=== PATIENT | female | born 2000 | race Caucasian/White ===

== ENCOUNTER 2021-10-11 23:48 | Inpatient (IN) ==
[2021-10-12] MEDS ORDERED: LACTATED RINGER'S 1,000 ML IV PRN (00:13)
[2021-10-12] MEDS ORDERED: OXYTOCIN 30 UNITS/500 ML BAG IV PRN ×2 (00:13→01:11)
--- NOTE | 2021-10-12 00:15 | History & Physical Report ---
Date of Service October 12, 2021 Assessment & Plan (1) Encounter for supervision of normal in multigravida, antepartum: Plan: 20yo at 39.0 weeks GA. Labor 1. Fetus: Cat 1 2. Labor: Active. 3. GBS: Negative (2) Normal labor and delivery: Admission and Anticipated Discharge Date Admission Date: October 11, 2021 History of Present Illness Primary Care Provider: Zita Zamudio, DO 20yo at 39.0 weeks GA. Present in advanced active labor. complicated by A1gDM. OB Labs: Blood Type O Positive 03/12/21 Antibody Screen NEGATIVE 03/12/21 Hemoglobin 11.8 g/dL (12.0-16.0) L 07/31/21 Hematocrit 35.0 % (37-47) L 07/31/21 Mean Corpuscular Volume 81.4 fL (80-100) 03/12/21 Platelet Count 223 K/uL (130-400) 10/03/21 Rubella IgG Antibody Immune (Immune) 03/12/21 Rapid Plasma Reagin Nonreactive (Nonreactive) 03/12/21 Hepatitis B Surface Antigen Neg (Neg) 10/03/21 HIV (1&2) Ab and P24 Ag, 4th Gener Neg (Neg) 03/12/21 Glucose 1 Hour 50 gm Load 136 mg/dl (70-130) H 07/31/21 Maternal Serum Alpha Fetoprotein 51.5 ng/mL 05/15/21 OB Optional Labs: Chlamydia trachomatis RNA NOT DETECTED (NOT DETECTED) 03/12/21 Neisseria gonorrhoeae RNA NOT DETECTED (NOT DETECTED) 03/12/21 Alpha Fetoprotein Triple Screen SEE NOTE 05/15/21 Allergies Allergy/AdvReac Type Severity Reaction Status Date / Time benzocaine Allergy Verified 10/11/21 10:09 Home Medications Medication Instructions Recorded Confirmed Type prenat.vits,kimo,kpx-jzyi-siafs 1 tab PO DAILY 03/02/21 10/12/21 History acetone (urine) test (Ketone Urine #50 ea 09/03/21 10/11/21 Rx Test) blood sugar diagnostic (OneTouch #150 ea 09/03/21 10/11/21 Rx Verio test strips) blood-glucose meter (OneTouch #1 ea 09/03/21 10/11/21 Rx Verio Flex meter) lancets 33 gauge (OneTouch Delica #150 ea 09/03/21 10/11/21 Rx Plus Lancet) ondansetron HCl 4 mg tablet 4 mg PO Q6H #20 tab 10/09/21 10/12/21 Rx Patient History Medical History (Updated 10/12/21 @ 06:52 by Carroll Parada MD) Asthma Gestational diabetes mellitus (GDM) affecting , antepartum Surgical History H/O wisdom tooth extraction History of tonsillectomy and adenoidectomy Family History Mother Diabetes Hypertension Social History (Updated 03/02/21 @ 14:29 by Chantel Nicholas) Smoking Status: Current every day smoker Tobacco Type: Cigarettes packs per day: 0.75; Cigarettes Per Day: 20; Hx Alcohol Use: No Hx Substance Use: No Preferred Language: [place] Electric Motor Rebuilder Required: No Beliefs That Will Affect Care: None marital status: Single marital status details: Saba (20) [phone] Current Living Situation: Alone Current Living Situation Comment: lives with 2 children current occupational status: employed current occupation: in home health care How many Children do You have: 2 Other Information That Helps Us Care for You: No Feels Safe at Home: Yes Safety Concerns: Feels Safe At This Time Do you think of yourself as: straight/heterosexual Gender Identity: Female Assistive Devices: Glasses Physical Exam Genitourinary: Manual OB Exam: + cervical dilation 6 cm, + cervical effacement 90% and + station 0 OB Exam Monitor Tracing: + external FHT monitor used, + external uterine monitor used and + category I; no category II, no normal FHT variability, no early decelerations present, no late decelerations present and no variable decelerations Results & Data ([facility]) Vital Signs (Past 12 Hours) Vital Signs Temp Pulse Resp BP 10/12/21 00:00 36.8 C 52 L 18 142/83 H Coding Level of Care Code None Diagnoses Encounter for supervision of normal in multigravida, antepartum Z34.80 Normal labor and delivery O80
[2021-10-12] MEDS ORDERED: fentaNYL 2MCG/ML ROPIVACAINE 1.25MG/ML 100 ML BAG EPI ONE (00:35)
[2021-10-12] MEDS ORDERED: fentaNYL citrate 100 MCG/2 ML VIAL ONE (00:35)
[2021-10-12] MEDS ORDERED: ePHEDrine sulfate 50 MG/ML AMP ONE (00:35)
[2021-10-12] MEDS ORDERED: SODIUM CHLORIDE 0.9% INJ 10 ML VIAL ONE (00:35)
[2021-10-12] MEDS ORDERED: BUPIVACAINE 0.25% 30 ML VIAL ONE (00:35)
[2021-10-12 00:47] LABS: Hematocrit (blood only) 33.7 % (37-47); Hemoglobin 11.1 g/dL (12.0-16.0); Mean Corpuscular Hemoglobin 26.6 pg (25-34); Mean Corpuscular Hgb Conc 32.9 g/dL (32-36); Mean Corpuscular Volume 80.6 fL (80-100); Mean Platelet Volume 11.7 fL (7.4-10.4); Platelet Count 245 K/uL (130-400); RDW Standard Deviation 43.2 fL (36.4-46.3); Red Blood Count 4.18 M/uL (4.2-5.4); White Blood Count 13.01 K/uL (4.8-10.8)
--- NOTE | 2021-10-12 01:07 | Anesthesiology Consultation ---
Date of Service October 12, 2021 Assessment & Plan (1) Encounter for pre-operative examination: Chart Review Chart Review: Acceptable Risk for Labor Epidural History Height/Weight Height: 5 ft 2 in Weight: 92.986 kg Allergies Allergy/AdvReac Type Severity Reaction Status Date / Time benzocaine Allergy Verified 10/11/21 10:09 Medications Home Medications Medication Instructions Recorded Confirmed Last Taken prenat.vits,kimo,nzl-issg-intql 1 tab PO DAILY 03/02/21 10/12/21 10/11/21 acetone (urine) test (Ketone Urine #50 ea 09/03/21 10/11/21 Unknown Test) blood sugar diagnostic (OneTouch #150 ea 09/03/21 10/11/21 Unknown Verio test strips) blood-glucose meter (OneTouch #1 ea 09/03/21 10/11/21 Unknown Verio Flex meter) lancets 33 gauge (OneTouch Delica #150 ea 09/03/21 10/11/21 Unknown Plus Lancet) ondansetron HCl 4 mg tablet 4 mg PO Q6H #20 tab 10/09/21 10/12/21 Unknown Active Medications Generic Name Dose Route Start Last Admin Trade Name Freq PRN Reason Stop Dose Admin Lactated Ringer's 1,000 mls @ 125 mls/hr 10/12/21 00:13 10/12/21 00:25 Lr IV 10/14/21 00:12 999 mls/hr .Q8H PRN Administration L&D Protocol Protocol Past Medical History Medical History (Updated 10/12/21 @ 01:07 by Osmany Aguilera MD) Asthma Gestational diabetes mellitus (GDM) affecting , antepartum Past Family History Family History Mother Diabetes Hypertension Past Surgical History Surgical History H/O wisdom tooth extraction History of tonsillectomy and adenoidectomy Social History Smoking Status: Current every day smoker tobacco type: cigarettes Smoking cigarettes per day: 20 Hx Alcohol Use: No Hx Substance Use: No Physical Exam Vital Signs Last Vital Signs Temp 36.8 C 10/12/21 00:06 Pulse 108 H 10/12/21 01:00 Resp 18 10/12/21 00:06 BP 142/83 H 10/12/21 00:06 Pulse Ox 89 L 10/12/21 01:00 Testing Laboratory Results 10/12/21 00:37 10/12/21 00:33 POC Glucose 106 H
[2021-10-12] MEDS ORDERED: HYDROCORTISONE ACETATE 25 MG SUPP PR PRN (01:11)
[2021-10-12] MEDS ORDERED: ACETAMINOPHEN 325 MG TAB PO PRN (01:11)
[2021-10-12] MEDS ORDERED: DIPHTHERIA/TETANUS/PERTUSSIS 0.5 ML SYR/VIAL IM ONE (01:11)
[2021-10-12] MEDS ORDERED: BENZOCAINE 20% AER SPR 82.5 GM CAN EXT PRN (01:11)
[2021-10-12] MEDS ORDERED: SUPERCREAM 0.870% 15 GM JAR EXT PRN (01:11)
[2021-10-12] MEDS: IBUPROFEN 600 MG TAB PO PRN ×4 (02:02→23:12)
--- NOTE | 2021-10-12 08:31 | Delivery Summary ---
DATE OF SERVICE: 10/12/2021 PROCEDURE: Normal spontaneous vaginal delivery. SURGEON: Carroll Parada MD. PREOPERATIVE DIAGNOSES: 1. Single intrauterine at 39 weeks 0 days gestational age. 2. Prior complicated by cholestasis of . 3. Diet-controlled gestational diabetes. POSTOPERATIVE DIAGNOSES: 1. Single intrauterine at 39 weeks 0 days gestational age. 2. Prior complicated by cholestasis of . 3. Diet-controlled gestational diabetes. 4. Status post procedure. ESTIMATED BLOOD LOSS: 200 mL. DRAINS: None. FLUIDS: Continuous lactated Ringer. URINE OUTPUT: None. COMPLICATIONS: None. FINDINGS: Viable with weight pending and Apgars of 8 and 9 at one and five minutes [facility]. INDICATIONS: Christal is a 20-year-old -0-0-2, at 39 weeks 0 day gestational age, presented in advanced active labor. Upon initial evaluation, the patient was found to be 6 cm dilated, 100% effac ed, 0 station. The patient progressed rapidly to complete-complete, +2 station with a strong urge to push. The patient underwent artificial rupture of membranes just prior to starting to push and push ed over 1 contraction to achieve delivery. DESCRIPTION OF PROCEDURE: The patient progressed to 10 cm dilated, 100% effaced, positive 2 station, pushed over intact perineum without anesthesia and delivered a viable with weight and Apgars pending. Head of the delivered in HUMBERTO position, restituted to right transverse. No nuchal cord was noted. Body and shoulders quickly followed. was noted to be vigorous soon after de livery and 1 minute delayed cord clamping was initiated. Cord was then double clamped and cut. Neon ate remained on maternal abdomen. Cord blood was obtained. Attention was then turned to delivery of the placenta, which was delivered intact, 3-vessel cord, gentle cord traction. Inspection of the pe rineum, vagina, cervix noted no lacerations. Sponge and instrument counts were correct at the comple tion of the case. Both mother and were stable in the immediate post-delivery period. Job ID: [id number]
[2021-10-12] MEDS: DOCUSATE SODIUM 100 MG CAP PO SCH ×2 (09:11→20:06)
[2021-10-12] MEDS: PRENATAL VITAMIN 1 TAB PO SCH (09:11)
--- NOTE | 2021-10-13 06:17 | Obstetrical Progress Note ---
Date of Service <Jluis Lama DO - Last Filed: 10/13/21 08:28> October 13, 2021 Assessment & Plan <Jluis Lama DO - Last Filed: 10/13/21 08:28> (1) Encounter for care and examination after delivery: 20 yo post day 1 from vaginal delivery, doing well. -Continue routine post care. -Blood pressures elevated to 140-150's systolic, 70's-90's diastolic. Started on Nifedipine XR 30mg daily given HR in 40's and 50's. -Blood type O+, GBS Negative, Rubella Immune. -Encourage ambulation, monitor and control pain with Motrin, tylenol PRN, resume regular diet, monitor lochia. -Hx of asthma, patient said she will take albuterol inhaler at home for cough. -Discussed discharge with patient. Discharge today pending BP. -Patient will follow up with OB clinic in 1 week for blood pressure check and Dr. Parada in 6 weeks. <Natalya Rock MD, FACOG - Last Filed: 10/13/21 08:32> (1) Encounter for care and examination after delivery: Subjective <Jluis Lama DO - Last Filed: 10/13/21 08:28> Ambulation: ambulating normally Voiding: no voiding problems Passing Gas:: Yes Diet Tolerance:: regular diet Lochia:: Small Feeding Type:: bottle feeding Current Pain Level(1-10): 0 Review of Systems Denies fever, chills, sweats Denies shortness of breath, difficulty breathing, chest pain, palpitations, chest pressure. +Cough infrequently. Denies breast pain. Denies dysuria. Denies headache or changes in vision Physical Exam <Jluis Lama DO - Last Filed: 10/13/21 08:28> General: Alert, oriented. No acute distress. Cardiac: Regular rate and rhythm, no murmurs/rubs/gallops. Respiratory: Wheezes in LLL field, clear elsewhere. No increased work of breathing. Symmetrical chest rise. No respiratory distress. Abdomen: Soft, nontender, nondistended. Bowel sounds present. Uterus: Uterine fundus firm, palpable 1 cm below umbilicus. Lower Extremities: No lower extremity edema or swelling. No deep calf pain. Abigail's negative bilaterally Results & Data ([facility]) <Jluis Lama DO - Last Filed: 10/13/21 08:28> Vital Signs (Past 12 Hours) Vital Signs Temp Pulse Resp BP Pulse Ox 10/12/21 23:10 36.7 C 52 L 16 135/69 97 10/12/21 20:00 36.7 C 46 L 16 148/90 H 99 <Natalya Rock MD, FACOG - Last Filed: 10/13/21 08:32> Co-Signing Physician Notes Resident Physician Supervision Note: I was present with Dr. Lama during the history and exam. I discussed the case with the resident and agree with the findings and plan as documented in the note. Any exceptions or clarifications are listed here: pt doing well and wants to go home today. i saw her bps overnight and labs today with cbc/cmp are normal. based on am bps, not yet documented in [facility], i am starting nifedipine xl and see how bp responds. if appropriate will dc home later today with plan for one wk bp check. rehabilitation assistant md to be notified of bps prior to dc as they will need to finalize meds. pt aware of dc instructions and plan. pranav, yessneia, ri. Documented By: Natalya Rock MD, FACOG Resident Activity Tracking <Jluis Lama DO - Last Filed: 10/13/21 08:28> Resident Involvement: Resident Care Provided Care Provided: OB Delivery
[2021-10-13 06:22] LABS: Hemoglobin 9.8 g/dL (12.0-16.0); Mean Corpuscular Hgb Conc 31.6 g/dL (32-36); Mean Corpuscular Volume 82.2 fL (80-100); Mean Platelet Volume 11.8 fL (7.4-10.4); Platelet Count 222 K/uL (130-400); RDW Coefficient of Variation 15.1 % (11.5-14.5); RDW Standard Deviation 44.8 fL (36.4-46.3); Red Blood Count 3.77 M/uL (4.2-5.4); White Blood Count 11.23 K/uL (4.8-10.8)
[2021-10-13 06:46] LABS: Albumin Level 2.7 gm/dl (3.4-5.0); Bilirubin,Total 0.3 mg/dl (0.2-1.0); Creatinine Clr Calc Pharmacy 144.1 ml/min; Est GFR (African American) 146.1 ml/min; Globulin 2.6 gm/dl (2.5-4.0); Total Protein 5.3 gm/dl (6.0-8.3)
[2021-10-13] MEDS ORDERED: NIFEdipine EXTENDED REL 30 MG TABCR PO ONE (08:30)
[2021-10-13] MEDS: PRENATAL VITAMIN 1 TAB PO SCH (09:01)
[2021-10-13] MEDS: IBUPROFEN 600 MG TAB PO PRN (09:01)
[2021-10-13] MEDS: DOCUSATE SODIUM 100 MG CAP PO SCH (09:01)
--- NOTE | 2021-10-13 13:50 | Communication Note ---
Date of Service: October 13, 2021 BP reviewed, last several values are all below the severe range. Patient has been eager to go home today. Will allow patient to d/c home with ER Nifedipine, gHTN precautions (call with [facility], vision changes, RUQ pain, increased edema, or feeling unwell), and a 1-week blood pressure check in the office. Her low pulse has made beta blockers less appealing as a treatment choice. Nifedipine 30ER daily Rx sent to her pharmacy.
[2021-10-13] MEDS ORDERED: bisacodyL 5 MG TABEC PO SCH (20:00)
[2021-10-14] MEDS ORDERED: bisacodyL 10 MG SUPP PR PRN
== END 2021-10-13 14:45 | disposition home or self-care (01) | DRG 807 ==
LOC: 4S1 23:48 → 4N 10-12 03:52
DX: O99.52 Diseases of the respiratory system complicating childbirth; Z88.4 Allergy status to anesthetic agent; R03.0 Elevated blood-pressure reading, without diagnosis of hypertension; O09.893 Supervision of other high risk pregnancies, third trimester; Z83.3 Family history of diabetes mellitus; Z3A.39 39 weeks gestation of pregnancy; Z79.899 Other long term (current) drug therapy; Z37.0 Single live birth; F17.210 Nicotine dependence, cigarettes, uncomplicated; O24.420 Gestational diabetes mellitus in childbirth, diet controlled; O99.334 Smoking (tobacco) complicating childbirth; J45.909 Unspecified asthma, uncomplicated; O99.893 Other specified diseases and conditions complicating puerperium

== ENCOUNTER 2021-10-31 15:32 | Inpatient (IN) ==
[2021-10-31 16:45] LABS: Basophils # (auto) 0.03 K/uL (0-0.2); Basophils % (auto) 0.3 %; Eosinophils # (auto) 0.07 K/uL (0-0.5); Eosinophils % (auto) 0.7 %; Hematocrit (blood only) 41.3 % (37-47); Hemoglobin 13.6 g/dL (12.0-16.0); Immature Granulocytes # (auto) 0.04 K/uL (0.00-0.02); Immature Granulocytes % (auto) 0.4 %; Lymphocytes # (auto) 2.71 K/uL (1.2-3.4); Lymphocytes % (auto) 28.8 %; Mean Corpuscular Hemoglobin 26.7 pg (25-34); Mean Corpuscular Hgb Conc 32.9 g/dL (32-36); Mean Corpuscular Volume 81.1 fL (80-100); Monocytes # (auto) 0.47 K/uL (0.11-0.59); Neutrophils % (auto) 64.8 %; Platelet Count 405 K/uL (130-400); RDW Coefficient of Variation 17.3 % (11.5-14.5); Red Blood Count 5.09 M/uL (4.2-5.4); White Blood Count 9.42 K/uL (4.8-10.8)
[2021-10-31 16:48] LABS: Appearance Urine Clear (Clear); Bacteria Urine Automated Negative (Negative); Blood Urine 3+ (Negative); Cast Urine Automated 0 /lpf (0-5); Color Urine Dark Yellow; Epithelial Cell Urine Auto >30 /lpf (0-5); Glucose Urine UA Negative (Negative); Ketones Urine Trace (Negative); Leukocyte Esterase Urine 1+ (Negative); Nitrite Urine Positive (Negative); Urobilinogen Urine Negative (Negative); pH Urine 7.5 (4.5-7.5)
[2021-10-31 16:55] LABS: Bilirubin Urine 2+ (Negative); Protein Urine Trace (Negative)
[2021-10-31 17:19] LABS: Albumin Globulin Ratio 1.2 (0.9-2); Albumin Level 4.1 gm/dl (3.4-5.0); BUN Creatinine Ratio 16.9 (10-20); Bilirubin,Total 3.7 mg/dl (0.2-1.0); Calcium 9.9 mg/dl (8.5-10.1); Creatinine Clr Calc Pharmacy 120.8 ml/min; Est GFR (African American) 140.1 ml/min; Est GFR (Non-African American) 120.9 ml/min; Globulin 3.4 gm/dl (2.5-4.0); Total Protein 7.5 gm/dl (6.0-8.3)
[2021-10-31] MEDS ORDERED: SODIUM CHLORIDE 0.9% 1000ML 1,000 ML IV ONE (18:20)
[2021-10-31] MEDS ORDERED: ONDANSETRON INJ 2 MG/ML 2 ML VIAL IV STA (18:20)
[2021-10-31] MEDS ORDERED: KETOROLAC TROMETHAMINE 15 MG/ML VIAL IV STA (18:20)
[2021-10-31 19:02] LABS: Potassium 3.7 mmol/L (3.5-5.1)
[2021-10-31 19:09] LABS: Pregnancy Test, Serum Negative (Negative)
--- NOTE | 2021-10-31 19:39 | Ultrasound Report ---
US gallbladder CLINICAL HISTORY: ruq pain TECHNIQUE: Multiple real-time sonographic images of the right upper quadrant were obtained. Comparison: None available at the time of this dictation. FINDINGS: The liver is diffusely homogenous with normal contour and echogenicity. No focal mass lesions are se en. No intrahepatic ductal dilatation is seen. Low level internal echoes are identified layering dependently within the gallbladder, which is consistent with gallbladder sludge. The gallbladder wall is not thickened. There is no pericholecystic fluid present. A sonographic Vergara's sign was not el icited by the remanufacturing technician. The common duct measures 1.3 cm in diameter at the level of the hepatic artery. Immobile stones are seen in the common bile duct at the level of the pancreatic head. The right kidney shows normal echogenicity, cortical thickness and renal contour. The right kidney sh ows no evidence of hydronephrosis or mass. No ascites or free fluid is seen in Galvan's pouch. IMPRESSION: Nonobstructive stones are seen at the level of the pancreatic head with dilation of the common bile d uct to 1.3 cm. Findings are compatible with choledocholithiasis. ACT 112: Negative or not required by law. Electronically signed by: Александр Ash M.D. 10/31/2021 7:37 PM
[2021-10-31 20:20] LABS: Pregnancy Test, Urine Negative (Negative)
--- NOTE | 2021-10-31 20:21 | History & Physical Report ---
Date of Service October 31, 2021 Assessment & Plan (1) Choledocholithiasis: Plan: 20-year-old female with history of cholestasis of , asthma admitted for choledocholithiasis. Choledocholithiasis: -Presented with several days of RUQ abdominal pain. -Outpatient lab work today with elevated AST/ALT, elevated alk phos, T bili of 3.8. -Gallbladder ultrasound reveals findings suggestive of choledocholithiasis. -MRCP ordered, pending. -Hoop Bending Machine Operator Dr. Mora consulted for consideration of ERCP. -Ultimately may benefit from cholecystectomy to prevent recurrence of pathology. -We will start Zosyn 3.375g every 6 hours. -Toradol as needed for abdominal pain. Can consider addition of opiate medication if pain is refractory to Toradol. -Zofran as needed for nausea. -NPO at midnight for possible intervention. NSS @ 125cc/hr x1 bag starting at midnight. Hematuria: -Noted on UA to have RBCs and nitrites in urine. -Urine culture sent. -Zosyn ordered as above will also cover any possible urinary tract infection, though UA did not note bacteria. CODE STATUS: Full code DVT prophylaxis: Ambulate on demand FEN: Crackers and apple sauce okay for now if tolerated by patient; NPO at midnight with IV fluids Dispo: Med/Surg History of Present Illness Chief Complaint: abdominal pain Primary Care Provider: Zita Zamudio, DO 20 yo F Hx asthma, cholestasis of presents to the ER for abdominal pain with intermittent associated nausea that has been going on for the last 1 week with worsening over the last day. She denies recent fevers or chills, chest pain, shortness of breath, diarrhea or constipation. She thought that she had a UTI because she was also experiencing dark urine. She was at evaluated at an urgent care earlier this week and was told she did not have UTI. She was evaluated by her PCP earlier today and had lab work which revealed elevated LFTs, prompting her PCP to advise her to come to the ER for evaluation. In the ER patient was noted to have normal vital signs no leukocytosis, elevated T bili to 3.7, with transaminitis and elevated alk phos. UA revealed positive nitrites but no bacteria. Urine and COVID-19 testing both negative. Patient had gallbladder ultrasound which revealed choledocholithiasis without evidence of cholecystitis. Patient received Zofran, Toradol, and 1 L bolus of normal saline. Hospitalist service was consulted for admission. Allergies Allergy/AdvReac Type Severity Reaction Status Date / Time benzocaine Allergy Verified 10/31/21 11:36 Home Medications Medication Instructions Recorded Confirmed Type No Known Home Medications 10/31/21 10/31/21 History Past Med/Surg History Medical History Asthma Gestational diabetes mellitus (GDM) affecting , antepartum Surgical History H/O wisdom tooth extraction History of tonsillectomy and adenoidectomy Family History Mother Diabetes Hypertension Social History Smoking Status: Current every day smoker Tobacco Type: Cigarettes packs per day: 0.75; Cigarettes Per Day: 20; Hx Alcohol Use: No Hx Substance Use: No Preferred Language: German Communication Ability: Effective Power Transformer Assembler Required: No Beliefs That Will Affect Care: None marital status: Single marital status details: Saba (22) [phone] Current Living Situation: Family Current Living Situation Comment: lives with 2 children current occupational status: employed current occupation: in home health care How many Children do You have: 2 Other Information That Helps Us Care for You: No Feels Safe at Home: Yes Safety Concerns: Feels Safe At This Time Do you think of yourself as: straight/heterosexual Gender Identity: Female Assistive Devices: None Review of Systems Review of Systems: All systems reviewed & are unremarkable except as noted in HPI & below Constitutional: + malaise; no fever and no chills Respiratory: no cough and no dyspnea Cardiovascular: no chest pain, no palpitations and no edema Gastrointestinal: + abdominal pain; no constipation and no diarrhea/loose stools Genitourinary: no dysuria and no hematuria dark urine x several days Physical Exam Constitutional: WD/WN, vitals as above Eyes: PERRL, conjunctivae normal, anicteric sclerae ENMT: external ear and nose normal, oropharynx normal Neck: normal visual inspection Respiratory: normal respiratory effort, lungs clear to auscultation Cardiovascular: RRR, no murmur, no edema Gastrointestinal (Abdomen): abdomen soft moderately tender in RUQ normal bowel sounds Musculoskeletal: no cyanosis or clubbing, extremities motor strength 5/5 Skin: no rashes, warm and dry Neurologic: Normal speech No gross motor or sensory deficits Psychiatric: A+Ox3, euthymic affect Results & Data Results & Data ([facility]) Vital Signs (Past 12 Hours) Vital Signs Temp Pulse Pulse Resp BP BP Pulse Ox 10/31/21 19:08 36.8 C 72 20 128/76 98 10/31/21 18:41 68 68 24 129/81 97 10/31/21 15:44 36.9 C 130 H 20 138/89 98 Supervising Physician Co-Signing Physician Notes Attending addendum: I have physically seen this patient, have supervised the medical residents activities, and agree with the H&P unless as otherwise noted. Assessment and Plan: Choledocholithiasis- As noted on CT Follow serial CBC with differential, chemistry profile Order MRCP Zosyn IV Zofran 4 mg IV every 6 hours as needed Follow cultures Hematuria- Follow urine culture and sensitivities Zosyn as above Remaining orders and notations as noted Resident Activity Tracking Resident Involvement: Resident Care Provided Care Provided: Adult [facility]
[2021-10-31] MEDS ORDERED: PIPERACILLIN/TAZOBACTAM 4.5 GM in DEXTROSE 5% 100 ML IV SCH (20:43)
[2021-10-31] MEDS ORDERED: PIPERACILL/TAZOBAC CONSULT ACTIVE PRN (20:43)
--- NOTE | 2021-10-31 20:56 | Emergency Department Note ---
History of Present Illness General Chief Complaint: Abnormal Labs/Diagnostic Testing Stated Complaint: LOWER BACK PAIN, POSSIBLE SEPSIS Time Seen by Provider: 10/31/21 18:10 History of Present Illness Provider Complaint: abdominal pain Onset (ago): 2 week(s) Pain Consistency: intermittent Location: RUQ Radiation: R flank and back Severity: moderate Maximum Pain Intensity: 7 Current Pain Intensity: 7 Quality: + stabbing and + sharp Relieved By: + nothing Exacerbated By: + eating Context: no foreign travel, no possible food poisoning, no sick contacts, no recent antibiotic use, no recent surgery/procedure or no recent injury Associated Symptoms: + nausea and + vomiting; no diarrhea, no fever, no chills, no constipation, no dysuria, no hematemesis, no hematochezia, no melena, no hematuria, no anorexia, no syncope, no headache, no neck pain, no back pain, no chest pain, no weakness, no breathing difficulty and no numbness Related Data Patient Confirmed : No Gestational Age Based on EDC: 39 Wks 0 D Home Medications Medication Instructions Recorded Confirmed Type No Known Home Medications 10/31/21 10/31/21 History Allergies Allergy/AdvReac Type Severity Reaction Status Date / Time benzocaine Allergy Verified 10/31/21 11:36 Past Med/Surg History Medical History Asthma Gestational diabetes mellitus (GDM) affecting , antepartum Surgical History H/O wisdom tooth extraction History of tonsillectomy and adenoidectomy Family History Mother Diabetes Hypertension Social History Smoking Status: Current every day smoker Tobacco Type: Cigarettes packs per day: 0.75; Cigarettes Per Day: 20; Hx Alcohol Use: No Hx Substance Use: No Preferred Language: Turkish [employer] Unit Required: No Beliefs That Will Affect Care: None marital status: Single marital status details: Saba (20) [phone] Current Living Situation: Alone Current Living Situation Comment: lives with 2 children current occupational status: employed current occupation: in home health care How many Children do You have: 2 Feels Safe at Home: Yes Do you think of yourself as: straight/heterosexual Gender Identity: Female Assistive Devices: None Review of Systems A total of 10 systems reviewed and were otherwise negative Physical Exam Vital Signs: Vital Signs - 24 hr 10/31/21 15:44 10/31/21 18:41 10/31/21 19:08 Temperature 36.9 C 36.8 C Temperature Source Oral Oral Pulse Rate 130 H 68 72 Pulse Rate [Apical ] 68 Pulse Rhythm Regular Pulse Rhythm [Apic al] Regular Pulse Strength Normal Pulse Strength [Ap ical] Normal Respiratory Rate 20 24 20 Respiratory Effort / Characteristics Non-Labored Respiratory Depth Normal Normal Respiratory Patter n Regular Regular Blood Pressure 138/89 128/76 Blood Pressure [Ri ght Arm] 129/81 Blood Pressure Helena n 105 Blood Pressure Helena n [Right Arm] 97 Blood Pressure Pos ition [Right Arm] Lying Pulse Oximetry 98 97 98 Oxygen Delivery Me thod Room Air Room Air Room Air Sepsis Recent Feve r Within 48 Hours No Sepsis New/Unexpla ined Change in Men ric Status N/A Sepsis Action Take n by Nursing No Action Required Physical Exam: Physical Exam GENERAL: She is oriented to person, place, and time. She appears well-developed and well-nourished. She does not appear distressed. HENT: Exam performed. -Head: Normocephalic and atraumatic. -Right Ear: External ear normal. No mastoid tenderness. -Left Ear: External ear normal. No mastoid tenderness. -Mouth/Throat: The oropharynx is clear and moist. No trismus in the jaw. No dental abscesses or uvula swelling. No oropharyngeal exudate or tonsillar abscesses. EYES: Conjunctivae and EOM are normal. Pupils are equal, round, and reactive to light. Right eye exhibits no discharge. Left eye exhibits no discharge. No scleral icterus. NECK: Normal range of motion. Neck supple. No JVD present. No spinous process tenderness present. No carotid bruit present. No rigidity. No tracheal deviation and normal range of motion present. No Brudzinski's sign and no Kernig's sign noted. CV: Normal rate, regular rhythm, normal heart sounds and intact distal pulses. There is no peripheral edema. Palpable radial pulses bue. PULM/CHEST: Effort normal and breath sounds normal. No respiratory distress. No stridor. She has no wheezes. She has no rales. -Chest Wall: She exhibits no tenderness. ABD: The abdomen is soft. Bowel sounds are normal. She has no distension. No mass is present. There is tenderness to palpation of the right upper quadrant There is no rebound, no guarding, no Vergara's sign and no tenderness at McBurney's point. Rovsig negative MUSC/SKEL: Normal range of motion. There is no peripheral edema, tenderness or deformity. LYMPH: No cervical adenopathy. NEURO: She is alert and oriented to person, place, and time. She has normal strength. No cranial nerve deficit or sensory deficit. Coordination and gait normal. GCS eye subscore is 4. GCS verbal subscore is 5. GCS motor subscore is 6. Cerebellar tests wnl. SKIN: Skin is warm and dry. She is not diaphoretic. PSYCH: She has a normal mood and affect. Behavior is normal. Judgment and thought content normal. Course Course 1809: The patient was evaluated in room D8. A complete history and physical exam was performed Cardiac monitoring: An order was placed for continuous cardiac monitoring. The monitor shows a rate of 70 with sinus rhythm 1947: Vital signs stable. Labs show an elevated bilirubin level and elevated liver enzymes. Imaging shows choledocholithiasis. [facility] team notified. Patient does report her pain is better after receiving Toradol and nausea better after Zofran. Administered Medications Discontinued Medications Sodium Chloride (Nss 1000ml) 1,000 mls @ 999 mls/hr IV .Q1H1M ONE Stop: 10/31/21 19:20 Last Admin: 10/31/21 18:40 Dose: 999 mls/hr Documented by: [id number] Ketorolac Tromethamine (Ketorolac Tromethamine 15 Mg/Ml Vial) 15 mg IV NOW STA Stop: 10/31/21 18:21 Last Admin: 10/31/21 18:39 Dose: 15 mg Documented by: [id number] Ondansetron HCl (Ondansetron Inj 2 Mg/Ml 2 Ml Vial) 4 mg IV NOW STA Stop: 10/31/21 18:21 Last Admin: 10/31/21 18:39 Dose: 4 mg Documented by: [id number] Medical Decision Making Laboratory Data Result diagrams: 10/31/21 16:30 10/31/21 18:33 Lab Results 10/31/21 10/31/21 10/31/21 Range/Units 16:30 16:30 16:30 WBC 9.42 (4.8-10.8) K/uL RBC 5.09 (4.2-5.4) M/uL Hgb 13.6 (12.0-16.0) g/dL Hct 41.3 (37-47) % MCV 81.1 (80-100) fL MCH 26.7 (25-34) pg MCHC 32.9 (32-36) g/dL RDW Std Deviation 51.0 H (36.4-46.3) fL RDW Coeff of Tulio 17.3 H (11.5-14.5) % Plt Count 405 H (130-400) K/uL MPV 10.0 (7.4-10.4) fL Immature Gran % (Auto) 0.4 % Neut % (Auto) 64.8 % Lymph % (Auto) 28.8 % Hand % (Auto) 5.0 % Eos % (Auto) 0.7 % Baso % (Auto) 0.3 % Neut # (Auto) 6.10 (1.4-6.5) K/uL Lymph # (Auto) 2.71 (1.2-3.4) K/uL Hand # (Auto) 0.47 (0.11-0.59) K/uL Eos # (Auto) 0.07 (0-0.5) K/uL Baso # (Auto) 0.03 (0-0.2) K/uL Immature Gran # (Auto) 0.04 H (0.00-0.02) K/uL Sodium 137 (136-145) mmol/L Potassium (3.5-5.1) mmol/L Chloride 101 (98-107) mmol/L Carbon Dioxide 28 (21-32) mmol/L Anion Gap 8 (3-11) BUN 12 (6-23) mg/dl Creatinine 0.71 (0.6-1.2) mg/dl Est Cr Clr Drug Dosing 120.8 ml/min Est GFR ( Amer) 140.1 ml/min Est GFR (Non-Af Amer) 120.9 ml/min BUN/Creatinine Ratio 16.9 (10-20) Glucose 96 (70-99(Fasting)) mg/dl Calcium 9.9 (8.5-10.1) mg/dl Total Bilirubin 3.7 H (0.2-1.0) mg/dl AST (13-39) U/L ALT 351 H (7-52) U/L Alkaline Phosphatase 476 H (34-104) U/L Total Protein 7.5 (6.0-8.3) gm/dl Albumin 4.1 (3.4-5.0) gm/dl Globulin 3.4 (2.5-4.0) gm/dl Albumin/Globulin Ratio 1.2 (0.9-2) Lipase 16 (11-82) U/L HCG, Qual (Negative) Urine Color Dark Yellow Urine Appearance Clear (Clear) Urine pH 7.5 (4.5-7.5) Ur Specific [place] 1.020 (1.000-1.030) Urine Protein Trace H (Negative) Urine Glucose (UA) Negative (Negative) Urine Ketones Trace H (Negative) Urine Blood 3+ H (Negative) Urine Nitrite Positive A (Negative) Urine Bilirubin 2+ H (Negative) Urine Urobilinogen Negative (Negative) Ur Leukocyte Esterase 1+ H (Negative) Urine WBC (Auto) 5-10 H (0-5) /hpf Urine RBC (Auto) 10-30 H (0-4) /hpf U Hyaline Cast (Auto) 0 (0-5) /lpf U Epithel Cells (Auto) >30 H (0-5) /lpf Urine Bacteria (Auto) Negative (Negative) Urine Yeast Not Reportable Urine Test (Negative) SARS-CoV-2, RNA, NAAT (NEGATIVE) 10/31/21 10/31/21 10/31/21 Range/Units 16:30 18:33 18:35 WBC (4.8-10.8) K/uL RBC (4.2-5.4) M/uL Hgb (12.0-16.0) g/dL Hct (37-47) % MCV (80-100) fL MCH (25-34) pg MCHC (32-36) g/dL RDW Std Deviation (36.4-46.3) fL RDW Coeff of Tulio (11.5-14.5) % Plt Count (130-400) K/uL MPV (7.4-10.4) fL Immature Gran % (Auto) % Neut % (Auto) % Lymph % (Auto) % Hand % (Auto) % Eos % (Auto) % Baso % (Auto) % Neut # (Auto) (1.4-6.5) K/uL Lymph # (Auto) (1.2-3.4) K/uL Hand # (Auto) (0.11-0.59) K/uL Eos # (Auto) (0-0.5) K/uL Baso # (Auto) (0-0.2) K/uL Immature Gran # (Auto) (0.00-0.02) K/uL Sodium (136-145) mmol/L Potassium 3.7 (3.5-5.1) mmol/L Chloride (98-107) mmol/L Carbon Dioxide (21-32) mmol/L Anion Gap (3-11) BUN (6-23) mg/dl Creatinine (0.6-1.2) mg/dl Est Cr Clr Drug Dosing ml/min Est GFR ( Amer) ml/min Est GFR (Non-Af Amer) ml/min BUN/Creatinine Ratio (10-20) Glucose (70-99(Fasting)) mg/dl Calcium (8.5-10.1) mg/dl Total Bilirubin (0.2-1.0) mg/dl AST 187 H (13-39) U/L ALT (7-52) U/L Alkaline Phosphatase (34-104) U/L Total Protein (6.0-8.3) gm/dl Albumin (3.4-5.0) gm/dl Globulin (2.5-4.0) gm/dl Albumin/Globulin Ratio (0.9-2) Lipase (11-82) U/L HCG, Qual Negative (Negative) Urine Color Urine Appearance (Clear) Urine pH (4.5-7.5) Ur Specific [place] (1.000-1.030) Urine Protein (Negative) Urine Glucose (UA) (Negative) Urine Ketones (Negative) Urine Blood (Negative) Urine Nitrite (Negative) Urine Bilirubin (Negative) Urine Urobilinogen (Negative) Ur Leukocyte Esterase (Negative) Urine WBC (Auto) (0-5) /hpf Urine RBC (Auto) (0-4) /hpf U Hyaline Cast (Auto) (0-5) /lpf U Epithel Cells (Auto) (0-5) /lpf Urine Bacteria (Auto) (Negative) Urine Yeast Urine Test Negative (Negative) SARS-CoV-2, RNA, NAAT (NEGATIVE) 10/31/21 Range/Units 19:57 WBC (4.8-10.8) K/uL RBC (4.2-5.4) M/uL Hgb (12.0-16.0) g/dL Hct (37-47) % MCV (80-100) fL MCH (25-34) pg MCHC (32-36) g/dL RDW Std Deviation (36.4-46.3) fL RDW Coeff of Tulio (11.5-14.5) % Plt Count (130-400) K/uL MPV (7.4-10.4) fL Immature Gran % (Auto) % Neut % (Auto) % Lymph % (Auto) % Hand % (Auto) % Eos % (Auto) % Baso % (Auto) % Neut # (Auto) (1.4-6.5) K/uL Lymph # (Auto) (1.2-3.4) K/uL Hand # (Auto) (0.11-0.59) K/uL Eos # (Auto) (0-0.5) K/uL Baso # (Auto) (0-0.2) K/uL Immature Gran # (Auto) (0.00-0.02) K/uL Sodium (136-145) mmol/L Potassium (3.5-5.1) mmol/L Chloride (98-107) mmol/L Carbon Dioxide (21-32) mmol/L Anion Gap (3-11) BUN (6-23) mg/dl Creatinine (0.6-1.2) mg/dl Est Cr Clr Drug Dosing ml/min Est GFR ( Amer) ml/min Est GFR (Non-Af Amer) ml/min BUN/Creatinine Ratio (10-20) Glucose (70-99(Fasting)) mg/dl Calcium (8.5-10.1) mg/dl Total Bilirubin (0.2-1.0) mg/dl AST (13-39) U/L ALT (7-52) U/L Alkaline Phosphatase (34-104) U/L Total Protein (6.0-8.3) gm/dl Albumin (3.4-5.0) gm/dl Globulin (2.5-4.0) gm/dl Albumin/Globulin Ratio (0.9-2) Lipase (11-82) U/L HCG, Qual (Negative) Urine Color Urine Appearance (Clear) Urine pH (4.5-7.5) Ur Specific [place] (1.000-1.030) Urine Protein (Negative) Urine Glucose (UA) (Negative) Urine Ketones (Negative) Urine Blood (Negative) Urine Nitrite (Negative) Urine Bilirubin (Negative) Urine Urobilinogen (Negative) Ur Leukocyte Esterase (Negative) Urine WBC (Auto) (0-5) /hpf Urine RBC (Auto) (0-4) /hpf U Hyaline Cast (Auto) (0-5) /lpf U Epithel Cells (Auto) (0-5) /lpf Urine Bacteria (Auto) (Negative) Urine Yeast Urine Test (Negative) SARS-CoV-2, RNA, NAAT NEGATIVE (NEGATIVE) Imaging Data Radiologist's Impression: Gallbladder Ultrasound 10/31/21 18:11 US gallbladder CLINICAL HISTORY: ruq pain TECHNIQUE: Multiple real-time sonographic images of the right upper quadrant were obtained. Comparison: None available at the time of this dictation. FINDINGS: The liver is diffusely homogenous with normal contour and echogenicity. No focal mass lesions are seen. No intrahepatic ductal dilatation is seen. Low level internal echoes are identified layering dependently within the gallbladder, which is consistent with gallbladder sludge. The gallbladder wall i s not thickened. There is no pericholecystic fluid present. A sonographic Vergara's sign was not elicited by the rn pediatric. The common duct measures 1.3 cm in diameter at the level of the hepatic artery. Immobile stones are seen in the common bile duct at the level of the pancreatic head. The right kidney shows normal echogenicity, cortical thickness and renal contour. The right kidney shows no evidence of hydronephrosis or mass. No ascites or free fluid is seen in Galvan's pouch. IMPRESSION: Nonobstructive stones are seen at the level of the pancreatic head with dilation of the common bile duct to 1.3 cm. Findings are compatible with choledocholithiasis. ACT 112: Negative or not required by law. Electronically signed by: Александр Ash M.D. 10/31/2021 7:37 PM MDM Narrative Vital signs stable. Labs show an elevated bilirubin level and elevated liver enzymes. Imaging shows choledocholithiasis. [facility] team notified. Patient does report her pain is better after receiving Toradol and nausea better after Zofran. Impression & Plan Choledocholithiasis, Elevated transaminase level, Jaundice Discharge Plan Visit Data Chief Complaint: Abnormal Labs/Diagnostic Testing Stated Complaint: LOWER BACK PAIN, POSSIBLE SEPSIS Discharge Problem: Choledocholithiasis, Elevated transaminase level, Jaundice Patient Disposition: Admitted As Inpatient Discharge Instructions Interventions: ED Discharge Assessment Last Done: 10/31/21 19:08 Forms Stand Alone Forms: My [facility] Prescriptions Prescriptions: No Action No Known Home Medications RF: 0 Referrals Referrals: Zita Zamudio DO [Primary Care Provider] -
[2021-10-31] MEDS ORDERED: KETOROLAC TROMETHAMINE 15 MG/ML VIAL IV PRN (21:21)
[2021-10-31] MEDS: MoRPHine SULFATE 2 MG/ML CARP IV PRN (21:30)
[2021-10-31] MEDS ORDERED: PIPERACILLIN/TAZOBACTAM 3.375 GM in DEXTROSE 5% 100 ML IV STA (22:29)
[2021-11-01] MEDS ORDERED: SODIUM CHLORIDE 0.9% 1000ML 1,000 ML IV SCH (00:13)
[2021-11-01] MEDS: ONDANSETRON INJ 2 MG/ML 2 ML VIAL IV PRN ×2 (04:39→21:58)
[2021-11-01] MEDS: PIPERACILLIN/TAZOBACTAM 3.375 GM in DEXTROSE 5% 100 ML IV SCH ×3 (05:45→21:51)
--- NOTE | 2021-11-01 07:38 | Magnetic Resonance Report ---
MR MRCP CLINICAL HISTORY: choledocholithiasis TECHNIQUE: Multiplanar multisequence MR images were obtained of the abdomen, followed by reconstruct ion of MRCP imaging. COMPARISON: None available at the time of this dictation. FINDINGS: Liver: There is homogeneous signal intensity seen within the liver. No mass lesions are seen. There i s no evidence for intrahepatic or duct dilatation. Gallbladder: The gallbladder is distended with cholelithiasis. There is no evidence for wall thickeni ng or pericholecystic edema. Spleen: There is homogeneous signal throughout the splenic parenchyma. No mass lesions are seen. Pancreas: The pancreas is homogeneous in signal There is no evidence for a mass lesion. Kidneys: There is homogeneous signal throughout the renal parenchyma bilaterally. Adrenal glands: There is homogeneous signal demonstrated with no gross mass seen. Abdominal cavity: There is no gross bowel dilatation. There is no evidence for ascites or adenopathy. The aorta is normal in caliber. The visualized osseous structures, demonstrate no evidence of abnormal signal intensity. MRCP: The common bile duct is dilated measuring approximately 10 mm. Numerous intraluminal calculi ar e present representing the presence of choledocholithiasis. Very mild intrahepatic or duct dilatation is also present. The pancreatic duct is normal in course and caliber. IMPRESSION: 1. Distention of the gallbladder with cholelithiasis. 2. No MR evidence for acute cholecystitis. 3. Choledocholithiasis with dilatation of the common bile duct and intrahepatic biliary duct radicles . ACT 112: Negative or not required by law. Electronically signed by: Mustapha Cassidy M.D. 11/01/2021 7:37 AM
--- NOTE | 2021-11-01 09:04 | Gastrointestinal Consultation ---
Date of Consultation November 01, 2021 Assessment & Plan (1) Choledocholithiasis: 20 year old female admitted w/ pain, elevated transaminases, imaging with gallstones and suspected choledocholithiasis. Clear liquids today NPO after midnight ERCP Friday General surgery consultation Continue supportive measures with fluids and pain control Thank you for allowing us to participate in the care of this patient. Please call with any acute changes, questions or concerns. Please see addendum below with additional recommendation from my supervising physician. Supervising Physician Co-Signing Physician Notes I have personally seen and examined the patient with SHANE Ornelas. Her note reflects my exam and findings. I agree with her impression and plan. Plan for colonoscopy tomorrow after prep. On for ERCP tomorrow. Modesto Olmos M.D. History of Present Illness Reason for Consultation: cbd stone Requesting Physician: edwin Attending Physician: Prakash Coats MD History of Present Illness 20 yo who delivered Oct 12 admitted through the ED with abd pain - gi asked to evaluate given elevated LFTs. Pt notes few a few days she has had right sided abd pain, nause and back pain. Denies vomiting. Denies change in bowel habits. Tbili 3.7 AST 187 ALT 351 ALKP 476 Lipase 16 MRCP: Distention of the gallbladder with cholelithiasis.. No MR evidence for acute cholecystitis. Choledocholithiasis with dilatation of the common bile duct and intrahepatic biliary duct radicles. Allergies Allergy/AdvReac Type Severity Reaction Status Date / Time benzocaine Allergy Verified 10/31/21 11:36 Home Medications Medication Instructions Recorded Confirmed Type No Known Home Medications 10/31/21 10/31/21 History Patient History Medical History Asthma Gestational diabetes mellitus (GDM) affecting , antepartum Surgical History H/O wisdom tooth extraction History of tonsillectomy and adenoidectomy Family History Mother Diabetes Hypertension Social History Smoking Status: Current every day smoker Tobacco Type: Cigarettes packs per day: 0.75; Cigarettes Per Day: 20; Hx Alcohol Use: No Hx Substance Use: No Preferred Language: Citizen Of [place] Communication Ability: Effective Experimental Mechanic Required: No Beliefs That Will Affect Care: None marital status: Single marital status details: Saba (20) [phone] Current Living Situation: Family Current Living Situation Comment: lives with 2 children current occupational status: employed current occupation: in home health care How many Children do You have: 2 Other Information That Helps Us Care for You: No Feels Safe at Home: Yes Safety Concerns: Feels Safe At This Time Do you think of yourself as: straight/heterosexual Gender Identity: Female Assistive Devices: Glasses Review of Systems Review of Systems: All systems reviewed & are unremarkable except as noted in HPI & below Physical Exam Constitutional: WD/WN, vitals as above Eyes: + icterus Respiratory: normal respiratory effort, lungs clear to auscultation Cardiovascular: Rate/Rhythm: regular rate and regular rhythm Gastrointestinal (Abdomen): normal bowel sounds, soft, nontender, no hepatosplenomegaly Skin: normal turgor; no rashes jaundice Results & Data ([facility]) Vital Signs (Past 12 Hours) Vital Signs Temp Pulse Pulse Resp BP Pulse Ox 11/01/21 07:53 36.6 C 80 16 91/53 L 96 11/01/21 00:21 36.9 C 72 16 108/71 97 10/31/21 23:37 36.8 C 77 18 125/74 98 10/31/21 21:00 74 18 109/64 98 Laboratory Results 10/31/21 10/31/21 10/31/21 Range/Units 19:57 18:35 18:33 WBC (4.8-10.8) K/uL RBC (4.2-5.4) M/uL Hgb (12.0-16.0) g/dL Hct (37-47) % MCV (80-100) fL MCH (25-34) pg MCHC (32-36) g/dL RDW Std Deviation (36.4-46.3) fL RDW Coeff of Tulio (11.5-14.5) % Plt Count (130-400) K/uL MPV (7.4-10.4) fL Immature Gran % (Auto) % Neut % (Auto) % Lymph % (Auto) % Emanuel % (Auto) % Eos % (Auto) % Baso % (Auto) % Neut # (Auto) (1.4-6.5) K/uL Lymph # (Auto) (1.2-3.4) K/uL Emanuel # (Auto) (0.11-0.59) K/uL Eos # (Auto) (0-0.5) K/uL Baso # (Auto) (0-0.2) K/uL Immature Gran # (Auto) (0.00-0.02) K/uL ESR (0-20) mm/hr Sodium (136-145) mmol/L Potassium (3.5-5.1) mmol/L Chloride (98-107) mmol/L Carbon Dioxide (21-32) mmol/L Anion Gap (3-11) BUN (6-23) mg/dl Creatinine (0.6-1.2) mg/dl Est Cr Clr Drug Dosing ml/min Est GFR ( Amer) ml/min Est GFR (Non-Af Amer) ml/min BUN/Creatinine Ratio (10-20) Glucose (70-99(Fasting)) mg/dl Calcium (8.5-10.1) mg/dl Total Bilirubin (0.2-1.0) mg/dl AST (13-39) U/L ALT (7-52) U/L Alkaline Phosphatase (34-104) U/L C-Reactive Protein 0.65 H (0-0.5) mg/dl Total Protein (6.0-8.3) gm/dl Albumin (3.4-5.0) gm/dl Globulin (2.5-4.0) gm/dl Albumin/Globulin Ratio (0.9-2) Lipase (11-82) U/L HCG, Qual Negative (Negative) Urine Color Urine Appearance (Clear) Urine pH (4.5-7.5) Ur Specific Wells (1.000-1.030) Urine Protein (Negative) Urine Glucose (UA) (Negative) Urine Ketones (Negative) Urine Blood (Negative) Urine Nitrite (Negative) Urine Bilirubin (Negative) Urine Urobilinogen (Negative) Ur Leukocyte Esterase (Negative) Urine WBC (Auto) (0-5) /hpf Urine RBC (Auto) (0-4) /hpf U Hyaline Cast (Auto) (0-5) /lpf U Epithel Cells (Auto) (0-5) /lpf Urine Bacteria (Auto) (Negative) Urine Yeast Urine Test (Negative) SARS-CoV-2, RNA, NAAT NEGATIVE (NEGATIVE) 10/31/21 10/31/21 10/31/21 Range/Units 18:33 16:30 16:30 WBC (4.8-10.8) K/uL RBC (4.2-5.4) M/uL Hgb (12.0-16.0) g/dL Hct (37-47) % MCV (80-100) fL MCH (25-34) pg MCHC (32-36) g/dL RDW Std Deviation (36.4-46.3) fL RDW Coeff of Tulio (11.5-14.5) % Plt Count (130-400) K/uL MPV (7.4-10.4) fL Immature Gran % (Auto) % Neut % (Auto) % Lymph % (Auto) % Emanuel % (Auto) % Eos % (Auto) % Baso % (Auto) % Neut # (Auto) (1.4-6.5) K/uL Lymph # (Auto) (1.2-3.4) K/uL Emanuel # (Auto) (0.11-0.59) K/uL Eos # (Auto) (0-0.5) K/uL Baso # (Auto) (0-0.2) K/uL Immature Gran # (Auto) (0.00-0.02) K/uL ESR 86 H (0-20) mm/hr Sodium (136-145) mmol/L Potassium 3.7 (3.5-5.1) mmol/L Chloride (98-107) mmol/L Carbon Dioxide (21-32) mmol/L Anion Gap (3-11) BUN (6-23) mg/dl Creatinine (0.6-1.2) mg/dl Est Cr Clr Drug Dosing ml/min Est GFR ( Amer) ml/min Est GFR (Non-Af Amer) ml/min BUN/Creatinine Ratio (10-20) Glucose (70-99(Fasting)) mg/dl Calcium (8.5-10.1) mg/dl Total Bilirubin (0.2-1.0) mg/dl AST 187 H (13-39) U/L ALT (7-52) U/L Alkaline Phosphatase (34-104) U/L C-Reactive Protein (0-0.5) mg/dl Total Protein (6.0-8.3) gm/dl Albumin (3.4-5.0) gm/dl Globulin (2.5-4.0) gm/dl Albumin/Globulin Ratio (0.9-2) Lipase (11-82) U/L HCG, Qual (Negative) Urine Color Urine Appearance (Clear) Urine pH (4.5-7.5) Ur Specific Wells (1.000-1.030) Urine Protein (Negative) Urine Glucose (UA) (Negative) Urine Ketones (Negative) Urine Blood (Negative) Urine Nitrite (Negative) Urine Bilirubin (Negative) Urine Urobilinogen (Negative) Ur Leukocyte Esterase (Negative) Urine WBC (Auto) (0-5) /hpf Urine RBC (Auto) (0-4) /hpf U Hyaline Cast (Auto) (0-5) /lpf U Epithel Cells (Auto) (0-5) /lpf Urine Bacteria (Auto) (Negative) Urine Yeast Urine Test Negative (Negative) SARS-CoV-2, RNA, NAAT (NEGATIVE) 10/31/21 10/31/21 10/31/21 Range/Units 16:30 16:30 16:30 WBC 9.42 (4.8-10.8) K/uL RBC 5.09 (4.2-5.4) M/uL Hgb 13.6 (12.0-16.0) g/dL Hct 41.3 (37-47) % MCV 81.1 (80-100) fL MCH 26.7 (25-34) pg MCHC 32.9 (32-36) g/dL RDW Std Deviation 51.0 H (36.4-46.3) fL RDW Coeff of Tulio 17.3 H (11.5-14.5) % Plt Count 405 H (130-400) K/uL MPV 10.0 (7.4-10.4) fL Immature Gran % (Auto) 0.4 % Neut % (Auto) 64.8 % Lymph % (Auto) 28.8 % Emanuel % (Auto) 5.0 % Eos % (Auto) 0.7 % Baso % (Auto) 0.3 % Neut # (Auto) 6.10 (1.4-6.5) K/uL Lymph # (Auto) 2.71 (1.2-3.4) K/uL Emanuel # (Auto) 0.47 (0.11-0.59) K/uL Eos # (Auto) 0.07 (0-0.5) K/uL Baso # (Auto) 0.03 (0-0.2) K/uL Immature Gran # (Auto) 0.04 H (0.00-0.02) K/uL ESR (0-20) mm/hr Sodium 137 (136-145) mmol/L Potassium (3.5-5.1) mmol/L Chloride 101 (98-107) mmol/L Carbon Dioxide 28 (21-32) mmol/L Anion Gap 8 (3-11) BUN 12 (6-23) mg/dl Creatinine 0.71 (0.6-1.2) mg/dl Est Cr Clr Drug Dosing 120.8 ml/min Est GFR ( Amer) 140.1 ml/min Est GFR (Non-Af Amer) 120.9 ml/min BUN/Creatinine Ratio 16.9 (10-20) Glucose 96 (70-99(Fasting)) mg/dl Calcium 9.9 (8.5-10.1) mg/dl Total Bilirubin 3.7 H (0.2-1.0) mg/dl AST (13-39) U/L ALT 351 H (7-52) U/L Alkaline Phosphatase 476 H (34-104) U/L C-Reactive Protein (0-0.5) mg/dl Total Protein 7.5 (6.0-8.3) gm/dl Albumin 4.1 (3.4-5.0) gm/dl Globulin 3.4 (2.5-4.0) gm/dl Albumin/Globulin Ratio 1.2 (0.9-2) Lipase 16 (11-82) U/L HCG, Qual (Negative) Urine Color Dark Yellow Urine Appearance Clear (Clear) Urine pH 7.5 (4.5-7.5) Ur Specific Wells 1.020 (1.000-1.030) Urine Protein Trace H (Negative) Urine Glucose (UA) Negative (Negative) Urine Ketones Trace H (Negative) Urine Blood 3+ H (Negative) Urine Nitrite Positive A (Negative) Urine Bilirubin 2+ H (Negative) Urine Urobilinogen Negative (Negative) Ur Leukocyte Esterase 1+ H (Negative) Urine WBC (Auto) 5-10 H (0-5) /hpf Urine RBC (Auto) 10-30 H (0-4) /hpf U Hyaline Cast (Auto) 0 (0-5) /lpf U Epithel Cells (Auto) >30 H (0-5) /lpf Urine Bacteria (Auto) Negative (Negative) Urine Yeast Not Reportable Urine Test (Negative) SARS-CoV-2, RNA, NAAT (NEGATIVE)
[2021-11-01] MEDS: LACTATED RINGER'S 1,000 ML IV SCH ×2 (09:32→18:04)
--- NOTE | 2021-11-01 11:01 | Surgery Consultation ---
Date of Consultation November 01, 2021 Assessment & Plan (1) Choledocholithiasis: 20 year-old female who is almost 3 weeks from spontaneous vaginal delivery on 10/12/21 who presented to ED with abdominal pain and nausea for 1 week with outpatient elevation of LFTs and t. bili. Ultrasound and MRCP showing choledocholithiasis without evidence of acute cholecystitis. No leukocytosis. Abdomen is soft, nondistended with mild tenderness in RUQ however negative vergara's sign. Plan: Given that there are no signs of acute cholecystitis on imaging, labs and exam, okay for patient to undergo ERCP tomorrow by GI and then close outpatient follow-up with DR. Zhao for discussion of outpatient cholecystectomy. Clear liquids per GI today and NPO after midnight pain management as needed should adhere to low fat diet until cholecystectomy Will provide office number in discharge paperwork to follow-up with Dr. Zhao on Friday11/06/2021 Dr. Zhao was present during my evaluation and examination and agrees with above. History of Present Illness Reason for Consultation: Choledocholithiasis Requesting Physician: SHANE Ornelas Attending Physician: Maximino Guan MD History of Present Illness Christal is a 20 year-old female who presented to ED with 1 week history of RUQ abdominal pain and nausea with radiation of pain to her back. She recently had a baby on 10/12/2021 by spontaneous vaginal delivery. She thought she was having a UTI given the abdominal pain. No changes in her bowel habits. She had outpatient labs which showed elevated LFT and t. bili and advised to go to emergency department. US showed choledocholithiasis without evidence of acute cholecystitis. GI consulted us for discussion of cholecystectomy given choledocholithiasis. Patient would prefer outpatient cholecystectomy if possible. Upon examination she is feeling fine , pain is better and controlled. No nausea or vomiting currently. Plan is for ERCP tomorrow. Allergies Allergy/AdvReac Type Severity Reaction Status Date / Time benzocaine Allergy Verified 10/31/21 11:36 Home Medications Medication Instructions Recorded Confirmed Type No Known Home Medications 10/31/21 10/31/21 History Patient History Medical History Asthma Gestational diabetes mellitus (GDM) affecting , antepartum Surgical History H/O wisdom tooth extraction History of tonsillectomy and adenoidectomy Family History Mother Diabetes Hypertension Social History Smoking Status: Current every day smoker Tobacco Type: Cigarettes packs per day: 0.75; Cigarettes Per Day: 20; Hx Alcohol Use: No Hx Substance Use: No Preferred Language: Green[place]ic Communication Ability: Effective Digital Field Service Technician Required: No Beliefs That Will Affect Care: None marital status: Single marital status details: Saba (20) [phone] Current Living Situation: Family Current Living Situation Comment: lives with 2 children current occupational status: employed current occupation: in home health care How many Children do You have: 2 Other Information That Helps Us Care for You: No Feels Safe at Home: Yes Safety Concerns: Feels Safe At This Time Do you think of yourself as: straight/heterosexual Gender Identity: Female Assistive Devices: Glasses Physical Exam Constitutional: WD/WN, vitals as above no acute distress and not ill appearing Neck: normal visual inspection and trachea midline Respiratory: normal respiratory effort; no respiratory distress Gastrointestinal (Abdomen): Inspection/Auscultation: abdomen normal to inspection; abdomen not distended Percussion/Palpation: + abdomen tender (mild in the RUQ on deep palpation, negative murphys) and abdomen soft; no guarding and abdomen not rigid Skin: no rashes, warm and dry Psychiatric: Orientation: alert and oriented x 3 Results & Data ([facility]) Vital Signs (Past 12 Hours) Vital Signs Temp Pulse Pulse Resp BP Pulse Ox 11/01/21 07:53 36.6 C 80 16 91/53 L 96 11/01/21 00:21 36.9 C 72 16 108/71 97 10/31/21 23:37 36.8 C 77 18 125/74 98 Laboratory Results 11/01/21 10/31/21 10/31/21 Range/Units 10:32 19:57 18:35 WBC (4.8-10.8) K/uL RBC (4.2-5.4) M/uL Hgb (12.0-16.0) g/dL Hct (37-47) % MCV (80-100) fL MCH (25-34) pg MCHC (32-36) g/dL RDW Std Deviation (36.4-46.3) fL RDW Coeff of Tulio (11.5-14.5) % Plt Count (130-400) K/uL MPV (7.4-10.4) fL Immature Gran % (Auto) % Neut % (Auto) % Lymph % (Auto) % Gila % (Auto) % Eos % (Auto) % Baso % (Auto) % Neut # (Auto) (1.4-6.5) K/uL Lymph # (Auto) (1.2-3.4) K/uL Gila # (Auto) (0.11-0.59) K/uL Eos # (Auto) (0-0.5) K/uL Baso # (Auto) (0-0.2) K/uL Immature Gran # (Auto) (0.00-0.02) K/uL ESR (0-20) mm/hr Sodium Pending (136-145) mmol/L Potassium Pending (3.5-5.1) mmol/L Chloride Pending (98-107) mmol/L Carbon Dioxide Pending (21-32) mmol/L Anion Gap Pending (3-11) BUN Pending (6-23) mg/dl Creatinine Pending (0.6-1.2) mg/dl Est Cr Clr Drug Dosing Pending ml/min Est GFR ( Amer) Pending ml/min Est GFR (Non-Af Amer) Pending ml/min BUN/Creatinine Ratio Pending (10-20) Glucose Pending (70-99(Fasting)) mg/dl Calcium Pending (8.5-10.1) mg/dl Total Bilirubin Pending (0.2-1.0) mg/dl AST Pending (13-39) U/L ALT Pending (7-52) U/L Alkaline Phosphatase Pending (34-104) U/L C-Reactive Protein (0-0.5) mg/dl Total Protein Pending (6.0-8.3) gm/dl Albumin Pending (3.4-5.0) gm/dl Globulin Pending (2.5-4.0) gm/dl Albumin/Globulin Ratio Pending (0.9-2) Lipase (11-82) U/L HCG, Qual Negative (Negative) Urine Color Urine Appearance (Clear) Urine pH (4.5-7.5) Ur Specific [place] (1.000-1.030) Urine Protein (Negative) Urine Glucose (UA) (Negative) Urine Ketones (Negative) Urine Blood (Negative) Urine Nitrite (Negative) Urine Bilirubin (Negative) Urine Urobilinogen (Negative) Ur Leukocyte Esterase (Negative) Urine WBC (Auto) (0-5) /hpf Urine RBC (Auto) (0-4) /hpf U Hyaline Cast (Auto) (0-5) /lpf U Epithel Cells (Auto) (0-5) /lpf Urine Bacteria (Auto) (Negative) Urine Yeast Urine Test (Negative) SARS-CoV-2, RNA, NAAT NEGATIVE (NEGATIVE) 10/31/21 10/31/21 10/31/21 Range/Units 18:33 18:33 16:30 WBC (4.8-10.8) K/uL RBC (4.2-5.4) M/uL Hgb (12.0-16.0) g/dL Hct (37-47) % MCV (80-100) fL MCH (25-34) pg MCHC (32-36) g/dL RDW Std Deviation (36.4-46.3) fL RDW Coeff of Tulio (11.5-14.5) % Plt Count (130-400) K/uL MPV (7.4-10.4) fL Immature Gran % (Auto) % Neut % (Auto) % Lymph % (Auto) % Gila % (Auto) % Eos % (Auto) % Baso % (Auto) % Neut # (Auto) (1.4-6.5) K/uL Lymph # (Auto) (1.2-3.4) K/uL Gila # (Auto) (0.11-0.59) K/uL Eos # (Auto) (0-0.5) K/uL Baso # (Auto) (0-0.2) K/uL Immature Gran # (Auto) (0.00-0.02) K/uL ESR 86 H (0-20) mm/hr Sodium (136-145) mmol/L Potassium 3.7 (3.5-5.1) mmol/L Chloride (98-107) mmol/L Carbon Dioxide (21-32) mmol/L Anion Gap (3-11) BUN (6-23) mg/dl Creatinine (0.6-1.2) mg/dl Est Cr Clr Drug Dosing ml/min Est GFR ( Amer) ml/min Est GFR (Non-Af Amer) ml/min BUN/Creatinine Ratio (10-20) Glucose (70-99(Fasting)) mg/dl Calcium (8.5-10.1) mg/dl Total Bilirubin (0.2-1.0) mg/dl AST 187 H (13-39) U/L ALT (7-52) U/L Alkaline Phosphatase (34-104) U/L C-Reactive Protein 0.65 H (0-0.5) mg/dl Total Protein (6.0-8.3) gm/dl Albumin (3.4-5.0) gm/dl Globulin (2.5-4.0) gm/dl Albumin/Globulin Ratio (0.9-2) Lipase (11-82) U/L HCG, Qual (Negative) Urine Color Urine Appearance (Clear) Urine pH (4.5-7.5) Ur Specific [place] Level (1.000-1.030) Urine Protein (Negative) Urine Glucose (UA) (Negative) Urine Ketones (Negative) Urine Blood (Negative) Urine Nitrite (Negative) Urine Bilirubin (Negative) Urine Urobilinogen (Negative) Ur Leukocyte Esterase (Negative) Urine WBC (Auto) (0-5) /hpf Urine RBC (Auto) (0-4) /hpf U Hyaline Cast (Auto) (0-5) /lpf U Epithel Cells (Auto) (0-5) /lpf Urine Bacteria (Auto) (Negative) Urine Yeast Urine Test (Negative) SARS-CoV-2, RNA, NAAT (NEGATIVE) 10/31/21 10/31/21 10/31/21 Range/Units 16:30 16:30 16:30 WBC (4.8-10.8) K/uL RBC (4.2-5.4) M/uL Hgb (12.0-16.0) g/dL Hct (37-47) % MCV (80-100) fL MCH (25-34) pg MCHC (32-36) g/dL RDW Std Deviation (36.4-46.3) fL RDW Coeff of Tulio (11.5-14.5) % Plt Count (130-400) K/uL MPV (7.4-10.4) fL Immature Gran % (Auto) % Neut % (Auto) % Lymph % (Auto) % Gila % (Auto) % Eos % (Auto) % Baso % (Auto) % Neut # (Auto) (1.4-6.5) K/uL Lymph # (Auto) (1.2-3.4) K/uL Gila # (Auto) (0.11-0.59) K/uL Eos # (Auto) (0-0.5) K/uL Baso # (Auto) (0-0.2) K/uL Immature Gran # (Auto) (0.00-0.02) K/uL ESR (0-20) mm/hr Sodium 137 (136-145) mmol/L Potassium (3.5-5.1) mmol/L Chloride 101 (98-107) mmol/L Carbon Dioxide 28 (21-32) mmol/L Anion Gap 8 (3-11) BUN 12 (6-23) mg/dl Creatinine 0.71 (0.6-1.2) mg/dl Est Cr Clr Drug Dosing 120.8 ml/min Est GFR ( Amer) 140.1 ml/min Est GFR (Non-Af Amer) 120.9 ml/min BUN/Creatinine Ratio 16.9 (10-20) Glucose 96 (70-99(Fasting)) mg/dl Calcium 9.9 (8.5-10.1) mg/dl Total Bilirubin 3.7 H (0.2-1.0) mg/dl AST (13-39) U/L ALT 351 H (7-52) U/L Alkaline Phosphatase 476 H (34-104) U/L C-Reactive Protein (0-0.5) mg/dl Total Protein 7.5 (6.0-8.3) gm/dl Albumin 4.1 (3.4-5.0) gm/dl Globulin 3.4 (2.5-4.0) gm/dl Albumin/Globulin Ratio 1.2 (0.9-2) Lipase 16 (11-82) U/L HCG, Qual (Negative) Urine Color Dark Yellow Urine Appearance Clear (Clear) Urine pH 7.5 (4.5-7.5) Ur Specific [place] 1.020 (1.000-1.030) Urine Protein Trace H (Negative) Urine Glucose (UA) Negative (Negative) Urine Ketones Trace H (Negative) Urine Blood 3+ H (Negative) Urine Nitrite Positive A (Negative) Urine Bilirubin 2+ H (Negative) Urine Urobilinogen Negative (Negative) Ur Leukocyte Esterase 1+ H (Negative) Urine WBC (Auto) 5-10 H (0-5) /hpf Urine RBC (Auto) 10-30 H (0-4) /hpf U Hyaline Cast (Auto) 0 (0-5) /lpf U Epithel Cells (Auto) >30 H (0-5) /lpf Urine Bacteria (Auto) Negative (Negative) Urine Yeast Not Reportable Urine Test Negative (Negative) SARS-CoV-2, RNA, NAAT (NEGATIVE) 10/31/21 Range/Units 16:30 WBC 9.42 (4.8-10.8) K/uL RBC 5.09 (4.2-5.4) M/uL Hgb 13.6 (12.0-16.0) g/dL Hct 41.3 (37-47) % MCV 81.1 (80-100) fL MCH 26.7 (25-34) pg MCHC 32.9 (32-36) g/dL RDW Std Deviation 51.0 H (36.4-46.3) fL RDW Coeff of Tulio 17.3 H (11.5-14.5) % Plt Count 405 H (130-400) K/uL MPV 10.0 (7.4-10.4) fL Immature Gran % (Auto) 0.4 % Neut % (Auto) 64.8 % Lymph % (Auto) 28.8 % Gila % (Auto) 5.0 % Eos % (Auto) 0.7 % Baso % (Auto) 0.3 % Neut # (Auto) 6.10 (1.4-6.5) K/uL Lymph # (Auto) 2.71 (1.2-3.4) K/uL Gila # (Auto) 0.47 (0.11-0.59) K/uL Eos # (Auto) 0.07 (0-0.5) K/uL Baso # (Auto) 0.03 (0-0.2) K/uL Immature Gran # (Auto) 0.04 H (0.00-0.02) K/uL ESR (0-20) mm/hr Sodium (136-145) mmol/L Potassium (3.5-5.1) mmol/L Chloride (98-107) mmol/L Carbon Dioxide (21-32) mmol/L Anion Gap (3-11) BUN (6-23) mg/dl Creatinine (0.6-1.2) mg/dl Est Cr Clr Drug Dosing ml/min Est GFR ( Amer) ml/min Est GFR (Non-Af Amer) ml/min BUN/Creatinine Ratio (10-20) Glucose (70-99(Fasting)) mg/dl Calcium (8.5-10.1) mg/dl Total Bilirubin (0.2-1.0) mg/dl AST (13-39) U/L ALT (7-52) U/L Alkaline Phosphatase (34-104) U/L C-Reactive Protein (0-0.5) mg/dl Total Protein (6.0-8.3) gm/dl Albumin (3.4-5.0) gm/dl Globulin (2.5-4.0) gm/dl Albumin/Globulin Ratio (0.9-2) Lipase (11-82) U/L HCG, Qual (Negative) Urine Color Urine Appearance (Clear) Urine pH (4.5-7.5) Ur Specific [place] (1.000-1.030) Urine Protein (Negative) Urine Glucose (UA) (Negative) Urine Ketones (Negative) Urine Blood (Negative) Urine Nitrite (Negative) Urine Bilirubin (Negative) Urine Urobilinogen (Negative) Ur Leukocyte Esterase (Negative) Urine WBC (Auto) (0-5) /hpf Urine RBC (Auto) (0-4) /hpf U Hyaline Cast (Auto) (0-5) /lpf U Epithel Cells (Auto) (0-5) /lpf Urine Bacteria (Auto) (Negative) Urine Yeast Urine Test (Negative) SARS-CoV-2, RNA, NAAT (NEGATIVE) Diagnostic Findings US gallbladder CLINICAL HISTORY: ruq pain TECHNIQUE: Multiple real-time sonographic images of the right upper quadrant were obtained. Comparison: None available at the time of this dictation. FINDINGS: The liver is diffusely homogenous with normal contour and echogenicity. No focal mass lesions are seen. No intrahepatic ductal dilatation is seen. Low level internal echoes are identified layering dependently within the gallbladder, which is consistent with gallbladder sludge. The gallbladder wall is not thickened. There is no pericholecystic fluid present. A sonographic Vergara's sign was not elicited by the confectionery cooker. The common duct measures 1.3 cm in diameter at the level of the hepatic artery. Immobile stones are seen in the common bile duct at the level of the pancreatic head. The right kidney shows normal echogenicity, cortical thickness and renal contour. The right kidney shows no evidence of hydronephrosis or mass. No ascites or free fluid is seen in Galvan's pouch. IMPRESSION: Nonobstructive stones are seen at the level of the pancreatic head with dilation of the common bile duct to 1.3 cm. Findings are compatible with chol edocholithiasis. MR MRCP CLINICAL HISTORY: choledocholithiasis TECHNIQUE: Multiplanar multisequence MR images were obtained of the abdomen, followed by reconstruction of MRCP imaging. COMPARISON: None available at the time of this dictation. FINDINGS: Liver: There is homogeneous signal intensity seen within the liver. No mass lesions are seen. There is no evidence for intrahepatic or duct dilatation. Gallbladder: The gallbladder is distended with cholelithiasis. There is no evidence for wall thickening or pericholecystic edema. Spleen: There is homogeneous signal throughout the splenic parenchyma. No mass lesions are seen. Pancreas: The pancreas is homogeneous in signal There is no evidence for a mass lesion. Kidneys: There is homogeneous signal throughout the renal parenchyma bilaterally. Adrenal glands: There is homogeneous signal demonstrated with no gross mass seen. Abdominal cavity: There is no gross bowel dilatation. There is no evidence for a scites or adenopathy. The aorta is normal in caliber. The visualized osseous structures, demonstrate no evidence of abnormal signal intensity. MRCP: The common bile duct is dilated measuring approximately 10 mm. Numerous intraluminal calculi are present representing the presence of choledocholithiasis. Very mild intrahepatic or duct dilatation is also present. The pancreatic duct is normal in course and caliber. IMPRESSION: 1. Distention of the gallbladder with cholelithiasis. 2. No MR evidence for acute cholecystitis. 3. Choledocholithiasis with dilatation of the common bile duct and intrahepatic biliary duct radicles.
[2021-11-01 11:20] LABS: Albumin Globulin Ratio 1.3 (0.9-2); Albumin Level 3.2 gm/dl (3.4-5.0); BUN Creatinine Ratio 14.3 (10-20); Bilirubin,Total 1.9 mg/dl (0.2-1.0); Calcium 8.2 mg/dl (8.5-10.1); Est GFR (African American) 147.6 ml/min; Est GFR (Non-African American) 127.3 ml/min; Globulin 2.5 gm/dl (2.5-4.0); Potassium 3.7 mmol/L (3.5-5.1); Total Protein 5.7 gm/dl (6.0-8.3)
--- NOTE | 2021-11-01 12:04 | Hospitalist Progress Note ---
Date of Service November 01, 2021 Assessment & Plan (1) Choledocholithiasis: Plan: Does not appear to be acute cholangitis given normal white blood count and afebrile; however at risk of bacterial infection pending ERCP -agree with continuing Zosyn for now. LFTs improving without intervention therefore suspect she has some flow in her biliary ducts. Mild pain continuing in her right upper quadrant. Planning on ERCP per gastroenterology tomorrow. Appreciate surgery consult -given no infective symptoms or signs for acute cholecystitis planning on outpatient follow-up for cholecystectomy Plan: VTE prophylaxis -no chemical prophylaxis due to low risk Diet - clear liquids today, n.p.o. at midnight Disposition -continue to mission pending ERCP tomorrow, likely discharge on Friday Admission and Anticipated Discharge Date Admission Date: October 31, 2021 Subjective Feeling better since she came in. Pain medications keeping her right upper quadrant pain under control well. No nausea, vomiting, diarrhea, melena, bright red blood in stool, fever, chills. Review of Systems Review of Systems: All systems reviewed & are unremarkable except as noted in Subjective Physical Exam Constitutional: WD/WN, vitals as above Respiratory: normal respiratory effort, lungs clear to auscultation Cardiovascular: RRR, no murmur, no edema Gastrointestinal (Abdomen): Inspection/Auscultation: normal bowel sounds Percussion/Palpation: + abdomen tender (RUQ) and abdomen soft; no guarding and abdomen not rigid Skin: no rashes, warm and dry Psychiatric: A+Ox3, euthymic affect Results & Data Results & Data ([facility]) Vital Signs (Past 12 Hours) Vital Signs Temp Pulse Resp BP Pulse Ox 11/01/21 07:53 36.6 C 80 16 91/53 L 96 11/01/21 00:21 36.9 C 72 16 108/71 97 PG Care Time/CCT Total # of Minutes Spent Total Time Spent with Patient: Total time spent is greater than 50% in coordination of care (as documented) at patient's floor/unit and/or counseling patient: Coding Level of Care Code 86320 Subseq Hosp Care Lvl 2 Diagnoses Choledocholithiasis K80.50
--- NOTE | 2021-11-01 15:33 | Anesthesiology Consultation ---
Date of Service November 01, 2021 Assessment & Plan Chart Review Chart Review: Acceptable Risk for Surgery and Patient NOT seen in Pre Admission Testing Consults Requested none ASA ASA2 Proposed Anesthesia Anesthesia Type: General History Surgery Operation Date: 11/02/21 14:10 Proposed Procedures p Endoscopic Retrograde Cholangiopancreato Genevieve Waddell DO Height/Weight Height: 5 ft 2 in Weight: 78.6 kg Allergies Allergy/AdvReac Type Severity Reaction Status Date / Time benzocaine Allergy Verified 10/31/21 11:36 Medications Home Medications Medication Instructions Recorded Confirmed Last Taken No Known Home Medications 10/31/21 10/31/21 Unknown Active Medications Generic Name Dose Route Start Last Admin Trade Name Freq PRN Reason Stop Dose Admin Piperacillin Sod/Tazobactam 115 mls @ 28.75 mls/hr 11/01/21 06:00 11/01/21 14:37 Sod 3.375 gm/ Dextrose IV 11/11/21 05:59 28.8 mls/hr Q8H TREY Administration Protocol Lactated Ringer's 1,000 mls @ 125 mls/hr 11/01/21 09:30 11/01/21 09:32 Lr IV 12/01/21 09:29 125 mls/hr .Q8H TREY Administration Morphine Sulfate 2 mg 10/31/21 21:21 10/31/21 21:30 Morphine Sulfate 2 Mg/Ml Carp IV 11/14/21 21:20 2 mg Q6H PRN Administration Severe of breakthrough pain Ondansetron HCl 4 mg 11/01/21 00:13 11/01/21 04:39 Ondansetron Inj 2 Mg/Ml 2 Ml Vial IV 12/01/21 00:12 4 mg Q6H PRN Administration Nausea Past Medical History Medical History Asthma Gestational diabetes mellitus (GDM) affecting , antepartum Exercise / Class Metabolic Activity II 4-5 Yardwork/Stairs/Walk up hill Past Family History Family History Mother Diabetes Hypertension Past Surgical History Surgical History H/O wisdom tooth extraction History of tonsillectomy and adenoidectomy Past Anesthesia History No Hx of Anesthesia Complications and No Family Hx of Anesthesia Complications History of PONV No Hx of PONV and No Hx of Motion Sickness Social History Smoking Status: Current every day smoker tobacco type: cigarettes Smoking cigarettes per day: 20 Hx Alcohol Use: No Hx Substance Use: No substance use type: does not use Physical Exam Vital Signs Last Vital Signs Temp 36.9 C 11/01/21 15:23 Pulse 80 11/01/21 15:23 Resp 16 11/01/21 15:23 BP 105/56 L 11/01/21 15:23 Pulse Ox 96 11/01/21 15:23 Testing Laboratory Results 10/31/21 16:30 11/01/21 10:32 Urine Color Dark Yellow 10/31/21 16:30 Urine Appearance Clear (Clear) 10/31/21 16:30 Urine pH 7.5 (4.5-7.5) 10/31/21 16:30 Ur Specific Spade 1.020 (1.000-1.030) 10/31/21 16:30 Urine Protein Trace (Negative) H 10/31/21 16:30 Urine Glucose (UA) Negative (Negative) 10/31/21 16:30 Urine Ketones Trace (Negative) H 10/31/21 16:30 Urine Nitrite Positive (Negative) A 10/31/21 16:30 Ur Leukocyte Esterase 1+ (Negative) H 10/31/21 16:30 Urine WBC (Auto) 5-10 /hpf (0-5) H 10/31/21 16:30 Urine RBC (Auto) 10-30 /hpf (0-4) H 10/31/21 16:30 U Hyaline Cast (Auto) 0 /lpf (0-5) 10/31/21 16:30 U Epithel Cells (Auto) >30 /lpf (0-5) H 10/31/21 16:30 Urine Bacteria (Auto) Negative (Negative) 10/31/21 16:30 Urine Test Negative (Negative) 10/31/21 16:30 10/31/21 16:30 Urine Culture - Preliminary Urine,Clean Catch No growth - Less than 1,000 colonies/mL, Final report to follow. 10/31/21 16:30 Urine Test Negative
--- NOTE | 2021-11-01 20:31 | Billing Data ---
Date of Service November 01, 2021 Coding Level of Care Code 91750 Initial Inpt Care Lvl 3
[2021-11-02] MEDS: LACTATED RINGER'S 1,000 ML IV SCH ×3 (02:54→18:06)
[2021-11-02] MEDS: PIPERACILLIN/TAZOBACTAM 3.375 GM in DEXTROSE 5% 100 ML IV SCH ×3 (06:23→22:42)
[2021-11-02 07:13] LABS: Alanine Aminotransferase 182 U/L (7-52); Albumin Globulin Ratio 1.3 (0.9-2); Albumin Level 2.8 gm/dl (3.4-5.0); Alkaline Phosphatase 277 U/L (34-104); Anion Gap 5 (3-11); Aspartate Aminotransferase 62 U/L (13-39); Bilirubin,Total 1.4 mg/dl (0.2-1.0); Blood Urea Nitrogen 5 mg/dl (6-23); Calcium 7.9 mg/dl (8.5-10.1); Carbon Dioxide 23 mmol/L (21-32); Chloride 110 mmol/L (98-107); Creatinine Clr Calc Pharmacy 171.3 ml/min; Est GFR (African American) > 150.0 ml/min; Est GFR (Non-African American) 137.4 ml/min; Globulin 2.2 gm/dl (2.5-4.0); Glucose 86 mg/dl (70-99(Fasting)); Potassium 3.7 mmol/L (3.5-5.1); Sodium 138 mmol/L (136-145)
--- NOTE | 2021-11-02 09:36 | Gastroenterology Progress Note ---
Date of Service November 02, 2021 Assessment & Plan (1) Choledocholithiasis: Plan: 20 year old female admitted w/ pain, elevated transaminases, imaging with gallstones and suspected choledocholithiasis. LFTs downtrending today but not normalized, will discussed with attending NPO ERCP CCY per general surgery Continue supportive measures with fluids and pain control Thank you for allowing us to participate in the care of this patient. Please call with any acute changes, questions or concerns. Please see addendum below with additional recommendation from my supervising physician. Admission and Anticipated Discharge Date Admission Date: October 31, 2021 Supervising Physician Co-Signing Physician Notes The patient presented with abdominal discomfort elevated liver enzymes and imaging findings consistent with choledocholithiasis. We are planning for ERCP today with gallstone extraction and likely stent placement today. I discussed the risks of the procedure with the patient to include bleeding, infection, perforation, increased risk of pancreatitis given her young age and gender in addition to failed biliary cannulation Subjective Feel better. No pain this AM Denies nausea/vomiting Is NPO for EUS/ERCP Review of Systems Review of Systems: All systems reviewed & are unremarkable except as noted in HPI & below Physical Exam Constitutional: WD/WN, vitals as above Neck: trachea midline, no thyromegaly Respiratory: normal respiratory effort, lungs clear to auscultation Gastrointestinal (Abdomen): normal bowel sounds, soft, nontender, no hepatosplenomegaly Skin: no rashes, warm and dry Results & Data ([facility]) Vital Signs (Past 12 Hours) Vital Signs Temp Pulse Resp BP Pulse Ox 11/02/21 07:21 36.8 C 63 18 107/72 98 11/01/21 22:21 36.3 C L 54 L 16 113/77 99 Laboratory Results 11/02/21 11/01/21 Range/Units 05:56 10:32 Sodium 138 140 (136-145) mmol/L Potassium 3.7 3.7 (3.5-5.1) mmol/L Chloride 110 H 108 H (98-107) mmol/L Carbon Dioxide 23 28 (21-32) mmol/L Anion Gap 5 4 (3-11) BUN 5 L 9 (6-23) mg/dl Creatinine 0.50 L 0.63 (0.6-1.2) mg/dl Est Cr Clr Drug Dosing 171.3 136.0 ml/min Est GFR ( Amer) > 150.0 147.6 ml/min Est GFR (Non-Af Amer) 137.4 127.3 ml/min BUN/Creatinine Ratio 10.0 14.3 (10-20) Glucose 86 130 H (70-99(Fasting)) mg/dl Calcium 7.9 L 8.2 L (8.5-10.1) mg/dl Total Bilirubin 1.4 H 1.9 H (0.2-1.0) mg/dl AST 62 H 156 H (13-39) U/L ALT 182 H 285 H (7-52) U/L Alkaline Phosphatase 277 H 354 H (34-104) U/L Total Protein 5.0 L 5.7 L D (6.0-8.3) gm/dl Albumin 2.8 L 3.2 L (3.4-5.0) gm/dl Globulin 2.2 L 2.5 (2.5-4.0) gm/dl Albumin/Globulin Ratio 1.3 1.3 (0.9-2) Diagnostic Findings MR MRCP CLINICAL HISTORY: choledocholithiasis TECHNIQUE: Multiplanar multisequence MR images were obtained of the abdomen, followed by reconstruction of MRCP imaging. COMPARISON: None available at the time of this dictation. FINDINGS: Liver: There is homogeneous signal intensity seen within the liver. No mass lesions are seen. There is no evidence for intrahepatic or duct dilatation. Gallbladder: The gallbladder is distended with cholelithiasis. There is no evidence for wall thickening or pericholecystic edema. Spleen: There is homogeneous signal throughout the splenic parenchyma. No mass lesions are seen. Pancreas: The pancreas is homogeneous in signal There is no evidence for a mass lesion. Kidneys: There is homogeneous signal throughout the renal parenchyma bilaterally. Adrenal glands: There is homogeneous signal demonstrated with no gross mass seen. Abdominal cavity: There is no gross bowel dilatation. There is no evidence for ascites or adenopathy. The aorta is normal in caliber. The visualized osseous structures, demonstrate no evidence of abnormal signal intensity. MRCP: The common bile duct is dilated measuring approximately 10 mm. Numerous intraluminal calculi are present representing the presence of choledocholithiasis. Very mild intrahepatic or duct dilatation is also present. The pancreatic duct is normal in course and caliber. IMPRESSION: 1. Distention of the gallbladder with cholelithiasis. 2. No MR evidence for acute cholecystitis. 3. Choledocholithiasis with dilatation of the common bile duct and intrahepatic biliary duct radicles.
[2021-11-02] MEDS ORDERED: MIDAZOLAM HCL 1 MG/ML 2ML VIAL ONE (12:23)
[2021-11-02] MEDS ORDERED: ONDANSETRON INJ 2 MG/ML 2 ML VIAL ONE (12:23)
[2021-11-02] MEDS ORDERED: PROPOFOL IV EMULSION 10 MG/ML 20 ML VIAL IV ONE (12:23)
[2021-11-02] MEDS ORDERED: fentaNYL citrate 100 MCG/2 ML VIAL ONE (12:23)
[2021-11-02] MEDS ORDERED: LIDOCAINE 2% 2 ML VIAL/AMP(20MG/ML) INFIL ONE (12:23)
[2021-11-02] MEDS ORDERED: DEXAMETHASONE SOD INJ 4 MG/ML VIAL ONE (12:23)
[2021-11-02] MEDS ORDERED: SUCCINYLCHOLINE CHLORIDE 20 MG/ML 10 ML VIAL IV ONE (12:24)
[2021-11-02] MEDS ORDERED: ROCURONIUM BROMIDE 10 MG/ML 5 ML VIAL IV ONE (12:24)
--- NOTE | 2021-11-02 12:37 | History & Physical Bridge Note ---
Date of Service November 02, 2021 History & Physical Bridge Note I have examined the patient, reviewed the History & Physical and in the interval since the performance of the History & Physical I have noted the following changes of clinical significance: no changes noted. The patient presented with abdominal discomfort elevated liver enzymes and imaging findings consistent with choledocholithiasis. We are planning for ERCP today with gallstone extraction and likely stent placement today. I discussed the risks of the procedure with the patient to include bleeding, infection, perforation, increased risk of pancreatitis given her young age and gender in addition to failed cannulation.
[2021-11-02] MEDS ORDERED: ePHEDrine sulfate 50 MG/ML AMP IV PRN (12:49)
[2021-11-02] MEDS ORDERED: HYDROmorphone INJ 2 MG/ML SYR/VIAL IV PRN (12:49)
[2021-11-02] MEDS ORDERED: fentaNYL citrate 100 MCG/2 ML VIAL IV PRN (12:49)
[2021-11-02] MEDS ORDERED: ATROPINE SULFATE 0.1 MG/ML 10ML SYR IV PRN (12:49)
[2021-11-02] MEDS ORDERED: ONDANSETRON INJ 2 MG/ML 2 ML VIAL IV PRN (12:49)
[2021-11-02] MEDS ORDERED: INDOMETHACIN 50 MG SUPP PR ONE ×2 (12:58→13:02)
--- NOTE | 2021-11-02 13:33 | Post Operative Brief Note ---
Immediate Post Op Note v1 Date of Surgery November 02, 2021 Pre & Post Diagnosis Operation Date: 11/02/21 14:10 Pre-Op Diagnosis: CHOLEDOCHOLITHIASIS Post-Op Diagnosis: cholithiasis. I identified the patient and participated in the time-out.: Yes Procedure Operation Date: 11/02/21 14:10 Actual Procedures p Abdominal Hiatal Hernia - Krishan Waddell DO Surgeon Krishan Waddell DO Tar Pot Worker none Estimated Blood Loss 0 Findings Consistent with Post-Op Diagnosis
--- NOTE | 2021-11-02 13:37 | Communication Note ---
Date of Service: November 02, 2021 The patient underwent ERCP for choledocholithiasis. During the examination we performed a biliary sphincterotomy remove several gallstones and placed a biliary stent. Recommendations Continue IV hydration overnight May have clear liquids today, may advance as tolerated tomorrow if patient pain- free Daily CMP with liver enzymes to monitor trend Avoid nonsteroidals for 1 week Continue antibiotic coverage for total of 10 days Cholecystectomy per general surgery Repeat ERCP in 6 to 8 weeks for biliary stent removal Please call with any questions or concerns
--- NOTE | 2021-11-02 13:42 | Fluoroscopy Report ---
[place] ERCP biliary ductal CLINICAL HISTORY: ERCP IN OR COMPARISON STUDY: None FLUOROSCOPY TIME: 40 seconds. FLUOROSCOPIC IMAGES: 8 FINDINGS: The common bile duct was cannulized and contrast was injected in a retrograde manner fillin g the common bile duct and intrahepatic biliary duct radicles. There also is partial filling of the g allbladder. Please see intraoperative report for further evaluation. IMPRESSION: Status post ERCP. ACT 112: Negative or not required by law. Electronically signed by: Mustapha Cassidy M.D. 11/02/2021 1:41 PM
--- NOTE | 2021-11-02 13:42 | GI REPORT ---
Patient Name: Christal Hallman Procedure Date: 11/02/2021 1:03 PM Date of : 2000 Admit Type: Inpatient Age: 20 Gender: Female Attending MD: Krishan Waddell DO Procedure: ERCP Providers: Krishan Waddell DO Referring MD: Zita Zamudio Do, Maximino Guan Md, Charlene Zhao, Jody Muñoz Indications: Abdominal pain of suspected biliary origin, Abnormal MRCP, Elevated liver enzymes Medicines: General Anesthesia Complications: No immediate complications. Estimated blood loss: Minimal. Estimated Blood Loss: Estimated blood loss was minimal. Procedure: Pre-Anesthesia Assessment: - Prior to the procedure, a History and Physical was performed, and patient medications, allergies and sensitivities were reviewed. The patient's tolerance of previous anesthesia was reviewed. - The risks and benefits of the procedure and the sedation options and risks were discussed with the patient. All questions were answered and informed consent was obtained. - Patient identification and proposed procedure were verified prior to the procedure by the physician, the nurse and the sole splitter. The procedure was verified in the procedure room. - Pre-procedure physical examination revealed no contraindications to sedation. - ASA Grade Assessment: II - A patient with mild systemic disease. - After reviewing the risks and benefits, the patient was deemed in satisfactory condition to undergo the procedure. - The anesthesia plan was to use general anesthesia. - Immediately prior to administration of medications, the patient was re-assessed for adequacy to receive sedatives. - The heart rate, respiratory rate, oxygen saturations, blood pressure, adequacy of pulmonary ventilation, and response to care were monitored throughout the procedure. - The physical status of the patient was re-assessed after the procedure. After obtaining informed consent, the scope was passed under direct vision. Throughout the procedure, the patient's blood pressure, pulse, and oxygen saturations were monitored continuously. The Duodenoscope was introduced through the mouth, and advanced to the duodenum and used to inject contrast into the bile duct. The ERCP was accomplished without difficulty. The patient tolerated the procedure well. Findings: The orthotic technician film was normal. The esophagus was successfully intubated under direct vision without detailed examination of the pharynx, larynx, and associated structures, and upper GI tract. The upper GI tract was grossly normal. The major papilla was congested. The bile duct was deeply cannulated with the short-nosed traction sphincterotome and 0.035 in Angled Acrobat 2 guidewire (PD not injected or cannulated today). Contrast was injected. I personally interpreted the bile duct images. Contrast extended to the entire biliary tree. The main bile duct was mildly dilated. The largest diameter was 8 mm. The biliary orifice was stenotic. This appeared benign. The lower third of the main bile duct contained filling defect(s) thought to be sludge. Biliary sphincterotomy was made with a monofilament Fusion OMNI sphincterotome using ERBE electrocautery. There was no post-sphincterotomy bleeding. To discover objects, the biliary tree was swept with an 11.5 mm balloon starting at the bifurcation. Two stones were removed. No stones remained. One 10 Fr by 7 cm biliary stent with a single external flap and a single internal flap was placed 7 cm into the common bile duct. Bile flowed through the stent. The stent was in good position. The endoscope was withdrawn from the patient. The total fluoroscopy exposure time was 40 seconds. Indomethacin 100 mg was given via suppository to decrease the risk of post-ERCP pancreatitis (PEP). Impression: - The major papilla appeared congested. - Biliary papillary stenosis, benign. - The examination was suspicious for sludge. - The entire main bile duct was mildly dilated. - Choledocholithiasis was found. Complete removal was accomplished by biliary sphincterotomy and balloon extraction. - A biliary sphincterotomy was performed. - The biliary tree was swept. - One biliary stent was placed into the common bile duct. - Indomethacin given to decrease risk of post-ERCP pancreatitis. Recommendation: - Avoid aspirin and nonsteroidal anti-inflammatory medicines for 1 week. - Clear liquid diet today. - Cholecystectomy per general surgery - Complete a 10 day course of antibiotic coverage - Repeat ERCP in 6 - 8 weeks to remove stent. Krishan Waddell D.O. Krishan Waddell, 11/02/2021 1:41:23 PM This report has been signed electronically. Note Initiated On: 11/02/2021 1:03 PM Number of Addenda: 0 I attest to the content of the Intraoperative Record and orders documented therein, exceptions below {[id number]}
[2021-11-02] MEDS ORDERED: GLUCAGON FOR INJ 1 MG VIAL ONE (13:52)
--- NOTE | 2021-11-02 14:10 | Anesthesiology Progress Note ---
Date of Service November 02, 2021 Anesthesia Post Procedure Vital Signs Vital Signs: Temp Pulse Pulse Resp BP BP Pulse Ox 11/02/21 14:00 36.4 C L 69 19 115/88 95 11/02/21 13:50 36.4 C L 62 13 101/67 96 11/02/21 13:40 63 10 L 116/78 99 11/02/21 13:32 36.3 C L 80 18 130/80 99 11/02/21 12:21 36.9 C 61 18 101/70 99 11/02/21 07:21 36.8 C 63 18 107/72 98 11/01/21 22:21 36.3 C L 54 L 16 113/77 99 11/01/21 15:23 36.9 C 80 16 105/56 L 96 Pain Intensity Right Abdomen: Pain Intensity: 0 Transfer of Care Handoff Completed per policy Notes Mental Status: alert / awake / arousable and participated in evaluation Patient Amnestic to Procedure: Yes Nausea / Vomiting: adequately controlled Pain: adequately controlled Airway Patency, RR, SpO2: stable & adequate BP & HR: stable & adequate Hydration State: stable & adequate Anesthetic Complications: no major complications apparent and Pt Satisfied with anesthetic care
--- NOTE | 2021-11-02 19:27 | Hospitalist Progress Note ---
Date of Service November 02, 2021 Assessment & Plan (1) Choledocholithiasis: Plan: Does not appear to be acute cholangitis given normal white blood count and afebrile; however at risk of bacterial infection pending ERCP -agree with continuing Zosyn for now. LFTs improving without intervention therefore suspect she has some flow in her biliary ducts. s/p ERCP 11/02 doing well following this Appreciate surgery consult -given no infective symptoms or signs for acute c holecystitis planning on outpatient follow-up for cholecystectomy Clear liquids tonight Advance diet tomorrow morning Likely discharge tomorrow - 10 days total of antibiotics, ?cefuroxime + metronidazole. Would avoid cipro given young age and risk of tendonitis rupture Plan: CODE STATUS: Full code DVT prophylaxis: Ambulate on demand FEN: clear liquids tonight, advance as tolerated tomorrow Dispo: Med/Surg, likely discharge tomorrow Admission and Anticipated Discharge Date Admission Date: October 31, 2021 Subjective Pain free following ERCP today. No nausea or vomiting. Tolerating clear liquids following this. Review of Systems Review of Systems: All systems reviewed & are unremarkable except as noted in Subjective Physical Exam Constitutional: WD/WN, vitals as above Respiratory: normal respiratory effort, lungs clear to auscultation Cardiovascular: RRR, no murmur, no edema Gastrointestinal (Abdomen): Inspection/Auscultation: normal bowel sounds Percussion/Palpation: abdomen soft; abdomen nontender, no guarding and abdomen not rigid Skin: no rashes, warm and dry Psychiatric: A+Ox3, euthymic affect Results & Data Results & Data ([facility]) Vital Signs (Past 12 Hours) Vital Signs Temp Pulse Pulse Resp BP BP Pulse Ox 11/02/21 15:31 36.5 C 51 L 18 120/81 98 11/02/21 14:27 36.8 C 98 H 16 119/71 98 11/02/21 14:10 36.4 C L 69 17 116/81 96 11/02/21 14:00 36.4 C L 69 19 115/88 95 11/02/21 13:50 36.4 C L 62 13 101/67 96 11/02/21 13:40 63 10 L 116/78 99 11/02/21 13:32 36.3 C L 80 18 130/80 99 11/02/21 12:21 36.9 C 61 18 101/70 99 PG Care Time/CCT Total # of Minutes Spent Total Time Spent with Patient: Total time spent is greater than 50% in coordination of care (as documented) at patient's floor/unit and/or counseling patient: Coding Level of Care Code 66964 Subseq Hosp Care Lvl 1 Diagnoses Choledocholithiasis K80.50
[2021-11-03] MEDS: LACTATED RINGER'S 1,000 ML IV SCH (01:18)
--- NOTE | 2021-11-03 05:04 | Surgery Progress Note ---
Date of Service November 03, 2021 Assessment & Plan (1) Choledocholithiasis: Plan: Postoperative day #1 ERCP Patient was found to have choledocholithiasis which was addressed by GI at time of ERCP Patient was not noted to have any evidence of cholecystitis on gallbladder ultrasound or MRCP at time of admission Plans noted for patient to pursue an outpatient cholecystectomy with Dr. Zhao upon time of discharge Patient has been counseled to institute a low-fat diet until her cholecystectomy can be performed Admission and Anticipated Discharge Date Admission Date: October 31, 2021 Subjective Patient is resting comfortably in bed. Since her ERCP yesterday she denies any worsening abdominal pain or nausea or vomiting. She has thus far tolerated clear liquids since her procedure. She denies passing any flatus. Physical Exam Gastrointestinal (Abdomen): Diminished soft and nondistended. There is little in the way of pain, particularly in the right upper quadrant. Results & Data ([facility]) Vital Signs (Past 12 Hours) Vital Signs Temp Pulse Resp BP Pulse Ox 11/02/21 23:32 36.3 C L 73 14 121/78 94 PG Care Time/CCT Total # of Minutes Spent Total Time Spent with Patient: Total time spent is greater than 50% in coordination of care (as documented) at patient's floor/unit and/or counseling patient: Coding Level of Care Code None Diagnoses Choledocholithiasis K80.50
[2021-11-03] MEDS: MoRPHine SULFATE 2 MG/ML CARP IV PRN (06:01)
[2021-11-03] MEDS: PIPERACILLIN/TAZOBACTAM 3.375 GM in DEXTROSE 5% 100 ML IV SCH (06:06)
[2021-11-03 06:29] LABS: Alanine Aminotransferase 128 U/L (7-52); Albumin Globulin Ratio 1.2 (0.9-2); Albumin Level 2.8 gm/dl (3.4-5.0); Alkaline Phosphatase 242 U/L (34-104); Anion Gap 6 (3-11); Aspartate Aminotransferase 29 U/L (13-39); Bilirubin,Total 1.1 mg/dl (0.2-1.0); Blood Urea Nitrogen 5 mg/dl (6-23); Calcium 8.3 mg/dl (8.5-10.1); Carbon Dioxide 22 mmol/L (21-32); Chloride 110 mmol/L (98-107); Creatinine Clr Calc Pharmacy 171.3 ml/min; Est GFR (African American) > 150.0 ml/min; Est GFR (Non-African American) 137.4 ml/min; Globulin 2.3 gm/dl (2.5-4.0); Glucose 106 mg/dl (70-99(Fasting)); Lipase 193 U/L (11-82); Potassium 3.7 mmol/L (3.5-5.1); Sodium 138 mmol/L (136-145); Total Protein 5.1 gm/dl (6.0-8.3)
[2021-11-03 08:57] LABS: Hematocrit (blood only) 33.1 % (37-47); Hemoglobin 10.5 g/dL (12.0-16.0); Mean Corpuscular Hemoglobin 26.1 pg (25-34); Mean Corpuscular Hgb Conc 31.7 g/dL (32-36); Mean Corpuscular Volume 82.1 fL (80-100); Mean Platelet Volume 9.9 fL (7.4-10.4); Platelet Count 314 K/uL (130-400); RDW Coefficient of Variation 17.4 % (11.5-14.5); RDW Standard Deviation 51.2 fL (36.4-46.3); Red Blood Count 4.03 M/uL (4.2-5.4); White Blood Count 10.41 K/uL (4.8-10.8)
[2021-11-03] MEDS ORDERED: metroNIDAZOLE 500 MG TAB PO SCH (09:30)
[2021-11-03 09:39] LABS: Ferritin 22.1 ng/ml (8-388)
[2021-11-03] MEDS ORDERED: cefUROXime axetil 500 MG TAB PO SCH (13:00)
--- NOTE | 2021-11-03 13:47 | Discharge Summary ---
Date of Service November 03, 2021 Admission HPI Per Admitting Provider 20 yo F Hx asthma, cholestasis of presents to the ER for abdominal pain with intermittent associated nausea that has been going on for the last 1 week with worsening over the last day. She denies recent fevers or chills, chest pain, shortness of breath, diarrhea or constipation. She thought that she had a UTI because she was also experiencing dark urine. She was at evaluated at an urgent care earlier this week and was told she did not have UTI. She was evaluated by her PCP earlier today and had lab work which revealed elevated LFTs, prompting her PCP to advise her to come to the ER for evaluation. In the ER patient was noted to have normal vital signs no leukocytosis, elevated T bili to 3.7, with transaminitis and elevated alk phos. UA revealed positive nitrites but no bacteria. Urine and COVID-19 testing both negative. Patient had gallbladder ultrasound which revealed choledocholithiasis without evidence of cholecystitis. Patient received Zofran, Toradol, and 1 L bolus of normal saline. Hospitalist service was consulted for admission. Admission Exam Per Admitting Provider Constitutional: WD/WN, vitals as above Eyes: PERRL, conjunctivae normal, anicteric sclerae ENMT: external ear and nose normal, oropharynx normal Neck: normal visual inspection Respiratory: normal respiratory effort, lungs clear to auscultation Cardiovascular: RRR, no murmur, no edema Gastrointestinal (Abdomen): abdomen soft moderately tender in RUQ normal bowel sounds Musculoskeletal: no cyanosis or clubbing, extremities motor strength 5/5 Skin: no rashes, warm and dry Neurologic: Normal speech No gross motor or sensory deficits Psychiatric: A+Ox3, euthymic affect Principal Diagnosis Choledocolithasis Iron Deficiency Discharge Exam Constitutional: Vitals are stable Respiratory: Lung sounds were generally clear bilaterally. Cardiovascular: Heart was RRR without significant murmur, gallops or rubs. Gastrointestinal: No palpable hepatic or splenomegaly. The abdomen was soft with normal bowel sounds. Musculoskeletal System: The musculoskeletal system seemed concordant with age. Skin: The skin was negative for jaundice. Extremities: Negative for edema or erythema Discharge Data Allergies Allergy/AdvReac Type Severity Reaction Status Date / Time benzocaine Allergy Verified 10/31/21 11:36 Consultations 10/31/21 19:48 ED Decision to Admit Stat 10/31/21 20:22 Consult Gastroenterology Routine 11/01/21 08:58 Consult General Surgery Routine Procedures Performed Operation Date: 11/02/21 14:10 Actual Procedures p Abdominal Hiatal Hernia - Krishan Waddell DO Ordered Studies 10/31/21 18:11 US gallbladder Stat 10/31/21 20:18 MR MRCP Stat 11/02/21 14:10 FL ERCP biliary ductal Routine Hospital Course (1) Choledocholithiasis: - Gallbladder US 10/31/21 with non obstructive stones seen at the level of the pancreatic head with dilation of CBD to 1.3 cm. - No evidence of cholangitis due to normal WBC and patient being afebrile. - S/p ERCP on 11/02, choledocolithiasis was found and complete removal was performed. One biliary stent placed into CBD. - She will undergo laparoscopic cholecystectomy as an outpatient, per gen surg recs. Has an appt with Dr. Zhao on 11/06/21. - Received Zosyn IV as inpt; converted to Cefuroxime 500 mg BID and Flagyl 500 mg TID on day of discharge, 7 day outpatient course. - Recommend to avoid NSAIDs for 1 week. Advised to follow a low fat diet until she undergoes cholecystectomy. - She will require outpatient ERCP in 6 to 8 weeks. (2) Iron deficiency: - Iron level 33, Ferritin 22.1. No prior labs for comparison. - Recommend starting Ferrous sulfate 325 mg PO daily at discharge. - Will need to discuss new diagnosis with PCP. Discharge to home on 11/03/21. Total Time Total Time Spent Total Time Spent (In Minutes): >30 minutes Discharge Plan Discharge Items Patient Disposition: Home - Self-Care Reason For Visit: CHOLEDOCHOLITHIASIS Discharge Diagnosis: Choledocolithiasis Condition on Discharge: Good Activity: Resume your previous activity Exercise/Sports: Wait until after follow-up appointment Non-emergency contact: Primary Care Provider and On Site Nurse Call non-emergency contact if: you have any medication questions, your symptoms worsen and you have a fever Follow-up/Referrals: Zita Zamudio DO [Primary Care Provider] - Charlene Zhao MD [Physician] - (Recommend follow-up with Dr. Zhao on 11/06/2021 to discuss outpatient cholecystectomy) Diet: Low Fat Addtl Attending Provider Instructions: 1. Choledocolithiasis - Following ERCP procedure on 11/02/21. - You will need to follow up with Dr. Zhao as scheduled on 11/06/21 to discuss outpatient laparoscopic cholecystectomy. - Please continue a low fat diet at home moving forward. - Antibiotics are recommended for treatment of an infection, until you are able to undergo cholecystectomy. - Please take Cefuroxime 500 mg twice daily. - Please take Flagyl 500 mg every 8 hours. - Prescription for medications will be sent to your pharmacy. - Please contact your primary care provider or gastroenterology if you develop severe abdominal pain, nausea/vomiting, fever/chills at home. - Please avoid taking Ibuprofen, Motrin, Aleve for one week following hospital discharge. - Prescription for Ondansetron 8 mg was sent to your pharmacy - this medication can be used for nausea/vomiting at home and may be taken every 8 hours. Please contact PCP or general surgery if you are having nausea/vomiting. 2. Iron Deficiency Anemia - Recommend starting Ferrous sulfate 325 mg PO daily. - You will need to discuss iron deficiency diagnosis with your primary care provider. - Of note, oral iron supplement can lead to constipation and black tarry stools; please take a stool softener once or twice daily for constipation. 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 You did not have any signs of acute cholecystitis (Acute inflammation of your gallbladder) during this admission to recommend removal of your gallbladder right away. Follow-up with DR. Zhao in surgical office on Friday11/06/2021 to discuss outpatient gallbladder removal Would recommend low fat diet, avoidance of greasy/fried foods until your gallbladder is removed. Pending Studies at Discharge: No Stand-Alone Forms: My [facility] Medications and DC Order Prescriptions: New cefuroxime axetil 500 mg Tablet 500 mg PO BID Qty: 14 RF: 0 metronidazole 500 mg Tablet 500 mg PO Q8H Qty: 21 RF: 0 ferrous sulfate 325 mg (65 mg iron) tablet 325 mg PO DAILY Qty: 30 RF: 2 Discharge Orders: Discharge Order (Routine); Ordered 11/03/21 Ordered By: Maximino Blas/Other Patient Handouts: ED Diet, Low Fat Admission Data Admit Date/Time: 02/16/22 20:22 Attending Provider: Maximino Guan Admit Provider: Karmen Baeza Primary Care Provider: Zita Zamudio Other Providers: Prakash Coats ; Jaylene Mora ; Charlene Zhao Other Interventions: Discharge Summary Assessment (RN) Last Done: 11/03/21 13:45 Supervising Physician Co-Signing Physician Notes Attending Attestation and Discharge Note: Pt seen/examined, chart reviewed, care plan d/w PA Myranda Love. I agree w/ the regalado components of her discharge documentation. 20yo female with choledocholithiasis. s/p ERCP by Dr Krishan Waddell. ERCP findings - - The major papilla appeared congested. - Biliary papillary stenosis, benign. - The examination was suspicious for sludge. - The entire main bile duct was mildly dilated. - Choledocholithiasis was found. Complete removal was accomplished by biliary sphincterotomy and balloon extraction. - A biliary sphincterotomy was performed. - The biliary tree was swept. - One biliary stent was placed into the common bile duct. Post-ERCP she was resumed on a diet and advanced without difficulty. Post-ERCP her LFTs trended down/improved. She will be referred to [facility] General surgery for lap adrián. A repeat ERCP will be needed to retrieve her CBD stent in about 6-8 weeks. A course of PO abx will be completed post-discharge. Discharge exam: gen - NAD eyes - no icterus mouth - MMM heart - RRR, s1 s2 lungs - CTA b/l abd - soft NT ND BS+; no HSM ext - no edema, pulses 2+ b/l Maximino Cosby MD Coding Level of Care Code Established Pt D/C DAY MANAGEMENT >30 MINS Patient Type Established Diagnoses Choledocholithiasis K80.50 Iron deficiency E61.1
--- NOTE | 2021-11-12 10:54 | Coding Query ---
To promote full compliance with coding requirements relating to patient care, provider participation is requested in all cases of manufacturing engineer automotive uncertainty. Please assist us with the question(s) below: Coding Question(s): The diagnosis below was documented in the H&P, then subsequently fell off all further documentation. Please indicate if it is still a possible diagnosis or ruled out. Physician's Response(s): POSSIBLE URINARY TRACT INFECTION - ( the H&P documents, "Zosyn ordered as above will also cover any possible urinary tract infection, though UA did not note bacteria", and possible UTI is not documented in any further documentation, and the Discharge Summary documents, "Received Zosyn IV as inpt; converted to Cefuroxime 500 mg BID and Flagyl 500 mg TID on day of discharge, 7 day outpatient course", and it is not clear if possible UTI is being treated or if it it ruled-out) ( ) Diagnosed and POA ( ) Diagnosed and not POA ( x ) Ruled out ( ) Other (please specify) MTDD
== END 2021-11-03 14:29 | disposition home or self-care (01) | DRG 776 ==
LOC: ED 15:32 → SUATTDRO 20:22 → 3N 20:22